=== PATIENT | male | born 1965 | race Caucasian/White ===

== ENCOUNTER → 2017-04-19 | Outpatient (CLI) | payer OTHER ==
[~2017-04-19] MED LIST: ABL10 PO; ATOR-26 PO; ATV/1 PO; GABA300C19 PO; GLYB1.257 PO; LISI5TAB3 PO; METF1TAB53 PO; TRAZ50TA35 PO; [UNRECOGNIZED DRUG - CODE] PO
[2017-04-19 12:15] LABS: BASO % 0.3 %; BASO ABS # 0.02 K/uL (0-0.2); COMPLETE YES; IG% 0.5 %; LYMPH % 24.1 %; LYMPH ABS # 1.46 K/uL (1.2-3.4); MEAN CELL VOLUME 91.3 fL (80-100); MEAN CORPUSCULAR HGB CONC 31.8 g/dl (32-36); MEAN PLATELET VOLUME 10.6 fL (7.4-10.4); MONO % 7.6 %; NEUT % 65.5 %; PLATELET COUNT 259 K/uL (130-400); RED BLOOD COUNT 4.82 M/uL (4.7-6.1); WHITE BLOOD COUNT 6.07 K/uL (4.8-10.8)
[2017-04-19 12:24] LABS: ALT/SGPT 35 U/L (12-78); BLOOD UREA NITROGEN 12 mg/dl (7-18); BUN/CREATININE RATIO 12.9 (10-20); CALCIUM 9.3 mg/dl (8.5-10.1); CARBON DIOXIDE 33 mmol/L (21-32); CHLORIDE 97 mmol/L (98-107); CREATININE 0.93 mg/dl (0.60-1.40); GLUCOSE 217 mg/dl (70-99); MAGNESIUM 2.1 mg/dl (1.8-2.4); POTASSIUM 4.1 mmol/L (3.5-5.1); SODIUM 136 mmol/L (136-145); URIC ACID 4.1 mg/dl (2.6-7.2)
[2017-04-19 12:27] LABS: ALB/GLOB RATIO 0.9 (0.9-2); ALKALINE PHOSPHATASE 83 U/L (45-117); AST/SGOT 19 U/L (15-37)
[2017-04-19 12:40] LABS: CREATININE, URINE 94.4 mg/dl; URINE PROTIEN/CREAT RATIO 0.1 (0-0.2); URINE TOTAL PROTEIN 8.3 mg/dl (0-11.9)
[2017-04-19 12:41] LABS: URINE APPEARANCE CLEAR (CLEAR); URINE BILIRUBIN NEG (NEG); URINE COLOR YELLOW; URINE EPITHELIAL CELL AUTO >30 /lpf (0-5); URINE NITRITE NEG (NEG); URINE PH 6.5 (4.5-7.5); URINE SPECIFIC GRAVITY 1.018 (1.000-1.030); UROBILINOGEN NEG (NEG)
[2017-04-19 12:45] LABS: MANUAL MICROSCOPIC REQUIRED? NO; REVIEW REQ? YES
== END | disposition home or self-care (01) ==
LOC: C.LABBFT 09:26
PROVIDERS: ATTEND Internal Medicine Nephrology
DX: E11.9 Type 2 diabetes mellitus without complications (principal); N20.0 Calculus of kidney; E66.01 Morbid (severe) obesity due to excess calories

== ENCOUNTER → 2017-06-05 | Outpatient (CLI) | payer OTHER ==
[~2017-06-05] MED LIST changes: +GABA-1218 PO; -GABA300C19 PO
[2017-06-05 17:55] LABS: BLOOD UREA NITROGEN 14 mg/dl (7-18); BUN/CREATININE RATIO 14.4 (10-20); CALCIUM 9.3 mg/dl (8.5-10.1); CARBON DIOXIDE 33 mmol/L (21-32); CHLORIDE 97 mmol/L (98-107); CREATININE 0.99 mg/dl (0.60-1.40); GLUCOSE 185 mg/dl (70-99); PHOSPHORUS 2.6 mg/dl (2.5-4.9); POTASSIUM 3.9 mmol/L (3.5-5.1); SODIUM 134 mmol/L (136-145)
== END | disposition home or self-care (01) ==
LOC: C.LABBFT 15:41
PROVIDERS: ATTEND Internal Medicine Nephrology
DX: I10 Essential (primary) hypertension (principal); N20.0 Calculus of kidney

== ENCOUNTER 2024-11-14 21:56 | Inpatient (IN) ==
[2024-11-14 22:57] LABS: Basophils # (auto) 0.02 K/uL (0.00-0.20); Basophils % (auto) 0.2 %; Eosinophils # (auto) 0.03 K/uL (0.00-0.50); Eosinophils % (auto) 0.4 %; Hematocrit (blood only) 37.7 % (42.0-52.0); Immature Granulocytes # (auto) 0.03 K/uL (0.01-0.20); Immature Granulocytes % (auto) 0.4 %; Lymphocytes # (auto) 0.55 K/uL (1.20-3.40); Lymphocytes % (auto) 6.5 %; Mean Corpuscular Hemoglobin 29.5 pg (25.0-34.0); Mean Corpuscular Hgb Conc 34.5 g/dL (32.0-36.0); Mean Corpuscular Volume 85.5 fL (80.0-100.0); Mean Platelet Volume 9.7 fL (9.4-12.4); Monocytes # (auto) 0.47 K/uL (0.11-0.59); Monocytes % (auto) 5.5 %; Neutrophils # (auto) 7.37 K/uL (1.40-6.50); Platelet Count 313 K/uL (130-400); RDW Coefficient of Variation 13.4 % (11.5-14.5); RDW Standard Deviation 42.1 fL (36.4-46.3); Red Blood Count 4.41 M/uL (4.70-6.10); White Blood Count 8.47 K/ul (4.8-10.8)
[2024-11-14 23:23] LABS: Albumin Level 3.8 gm/dl (3.4-5.0); Bilirubin Direct 0.1 mg/dl (0-0.2); Bilirubin,Total 0.5 mg/dl (0.2-1.0); Calcium 9.3 mg/dl (8.6-10.3); Creatinine Clr Calc Pharmacy 71.3 ml/min; Magnesium 2.1 mg/dl (1.7-2.4); Total Protein 8.3 gm/dl (6.0-8.3); Troponin I High Sensitivity 6.8 pg/ml (0-20)
[2024-11-14 23:42] LABS: Adenovirus PCR Not Detected (NotDetected); Bordetella parapertussis PCR Not Detected (NotDetected); Bordetella pertussis PCR Not Detected (NotDetected); Chlamydia pneumoniae PCR Not Detected (NotDetected); Coronavirus 229E PCR Not Detected (NotDetected); Coronavirus CoV-2 (COVID19)PCR Not Detected (NotDetected); Coronavirus HKU1 PCR Not Detected (NotDetected); Coronavirus NL63 PCR Not Detected (NotDetected); Coronavirus OC43PCR Not Detected (NotDetected); Human Metapneumovirus PCR Not Detected (NotDetected); Influenza A PCR Not Detected (NotDetected); Influenza B PCR Not Detected (NotDetected); Mycoplasma pneumoniae PCR Not Detected (NotDetected); Parainfluenza Virus 1 PCR Not Detected (NotDetected); Parainfluenza Virus 2 PCR Not Detected (NotDetected); Parainfluenza Virus 3 PCR Not Detected (NotDetected); Parainfluenza Virus 4 PCR Not Detected (NotDetected); Respiratory Syncytial VirusPCR Not Detected (NotDetected); Rhinovirus/Enterovirus PCR Not Detected (NotDetected)
[2024-11-14 23:45] LABS: Appearance Urine Cloudy (Clear); Bacteria Urine Automated 4+ (None Seen); Bilirubin Urine Negative (Negative); Blood Urine 1+ (Negative); Cast Urine Automated 0-2 /lpf (0-2); Color Urine Yellow; Epithelial Cell Urine Auto 0-2 /hpf (0-2); Glucose Urine UA 3+ (Negative); Ketones Urine Trace (Negative); Leukocyte Esterase Urine 2+ (Negative); Nitrite Urine Positive (Negative); Protein Urine 2+ (Negative); RBC Urine Automated 0-2 /hpf (0-2); Specific Gravity Urine 1.026 (1.000-1.030); Urobilinogen Urine Negative (Negative); WBC Urine Automated >50 /hpf (0-5)
[2024-11-14 23:57] LABS: HCO3 VBG 26 mmol/L; Oxygen Saturation VBG 70.9 %; PCO2 VBG 42 mmHg (38-50); PO2 VBG 37 mmHg
--- NOTE | 2024-11-15 00:02 | Emergency Department Note ---
History of Present Illness General Chief complaint: Urinary Symptoms Stated complaint: Cough, Fever, Increased Urination Time Seen by Provider: 11/14/24 22:18 History of Present Illness This 59-year-old male presents ER complaining fever, chills generalized illness and left flank pain and urinary symptoms for the past few days steadily getting worse. He does not routinely check his blood sugars. Patient denies chest pain, dyspnea, vomiting, diarrhea. No rash. Home Medications Medication Instructions Recorded Confirmed Type atorvastatin 80 mg tablet 80 mg PO HS 08/21/19 11/15/24 History gabapentin 300 mg capsule 300 mg PO BID 08/21/19 11/15/24 History gabapentin 300 mg capsule 600 mg PO HS 08/21/19 11/15/24 History lorazepam 1 mg tablet 1 mg PO HS 08/21/19 11/15/24 History metformin 1,000 mg tablet 1,000 mg PO BID 08/21/19 11/15/24 History methylphenidate HCl 20 mg 20 mg PO QAM 08/21/19 11/15/24 History tablet,extended release aripiprazole 20 mg tablet 20 mg PO DAILY 11/15/24 11/15/24 History docusate sodium 100 mg capsule 100 mg PO BID PRN Constipation 11/15/24 11/15/24 History (Col-Rite) empagliflozin 25 mg tablet 25 mg PO QAM 11/15/24 11/15/24 History (Jardiance) glipizide 10 mg tablet, extended 10 mg PO QAM 11/15/24 11/15/24 History release 24 hr semaglutide 2 mg/dose (8 mg/3 mL) 2 mg subcut WK 11/15/24 11/15/24 History subcutaneous pen injector (Ozempic) trazodone 150 mg tablet 150 mg PO HS 11/15/24 11/15/24 History Allergies Allergy/AdvReac Type Severity Reaction Status Date / Time Iodinated Contrast Media Allergy Intermediate itching Verified 03/24/22 08:31 Past Med/Surg History Problem List Acute hyperglycemia (Acute) Sepsis (Acute) Ureterolithiasis (Acute) Renal colic on left side (Acute) Acute pyelonephritis (Acute) Kidney stones Impotence (Acute Unknown) Right ankle pain (Acute) Encounter for pre-operative examination Colon polyp Medical History Schizophrenia Essential tremor Diabetic polyneuropathy Morbid obesity with BMI of 45.0-49.9, adult Diabetes mellitus, type 2 NIDDM Hgb A1C on 12/30/21 was 6.8 Bipolar disorder ADHD Hypertension Hyperlipidemia Sleep apnea cpap Surgical History History of cystoscopy 02/09/22 Bilateral retrograde pyelogram, attempted ureteroscopy, insertion of Bilateral Stent Catheter(Not Applicable) Hx of tooth extraction History of lymph node excision off left side of neck, benign tissue History of lumbar fusion History of colonoscopy with polypectomy History of wisdom tooth extraction Family History Mother Family history of diabetes mellitus Sister Family history of diabetes mellitus Sister Family history of diabetes mellitus Sister Family history of diabetes mellitus Other No family history of adverse response to anesthesia Social History Smoking Status: Never smoker Second Hand Exposure: Yes (IN THE PAST); Do You Dip or Chew Tobacco: No; Hx Alcohol Use: Yes Alcohol type: hard liquor Preferred Language: Kyrgyz Communication Ability: Effective Social Work Program Coordinator Required: No Beliefs That Will Affect Care: None Current Living Situation: Alone Feels Safe at Home: Yes Assistive Devices: CPAP, Denture - Upper, Denture - Lower and Glasses Review of Systems A total of 10 systems reviewed and were otherwise negative Physical Exam Vital Signs Vital Signs - 24 hr 11/14/24 22:05 11/14/24 22:11 11/14/24 22:26 Temperature 39.5 C H Temperature Source Oral Pulse Rate 104 H 103 H 100 H Pulse Rate [Finger] Pulse Rhythm Regular Pulse Rhythm [Finger] Pulse Strength [Finger] Respiratory Rate 24 22 Respiratory Effort / Characteristics Non-Labored Spontaneous Respiratory Depth Normal Respiratory Pattern Blood Pressure 125/81 Blood Pressure [Right Arm] Blood Pressure Mean 95 Blood Pressure Mean [Right Arm] Blood Pressure Position [Right Arm] Pulse Oximetry 94 95 Oxygen Delivery Method Room Air Room Air Sepsis Recent Fever Within 48 Hours Yes Sepsis New/Unexplained Change in Mental Status No Sepsis Action Taken by Nursing Physician Notified 11/14/24 22:30 11/14/24 23:00 11/14/24 23:22 Temperature Temperature Source Pulse Rate 99 H 96 H Pulse Rate [Finger] 100 H Pulse Rhythm Pulse Rhythm [Finger] Regular Pulse Strength [Finger] Normal Respiratory Rate 20 22 22 Respiratory Effort / Characteristics Non-Labored Spontaneous Respiratory Depth Normal Respiratory Pattern Regular Blood Pressure 150/85 H 101/68 Blood Pressure [Right Arm] 143/72 H Blood Pressure Mean 105 88 Blood Pressure Mean [Right Arm] 95 Blood Pressure Position [Right Arm] Lying Pulse Oximetry 95 95 95 Oxygen Delivery Method Room Air Sepsis Recent Fever Within 48 Hours Sepsis New/Unexplained Change in Mental Status Sepsis Action Taken by Nursing 11/14/24 23:30 11/14/24 23:45 11/15/24 00:15 Temperature Temperature Source Pulse Rate 96 H 96 H 91 H Pulse Rate [Finger] Pulse Rhythm Pulse Rhythm [Finger] Pulse Strength [Finger] Respiratory Rate 25 H 25 H 24 Respiratory Effort / Characteristics Respiratory Depth Respiratory Pattern Blood Pressure 97/69 L 98/66 L 116/65 Blood Pressure [Right Arm] Blood Pressure Mean 75 78 82 Blood Pressure Mean [Right Arm] Blood Pressure Position [Right Arm] Pulse Oximetry 95 95 95 Oxygen Delivery Method Sepsis Recent Fever Within 48 Hours Sepsis New/Unexplained Change in Mental Status Sepsis Action Taken by Nursing 11/15/24 00:19 Temperature 37.8 C H Temperature Source Oral Pulse Rate Pulse Rate [Finger] Pulse Rhythm Pulse Rhythm [Finger] Pulse Strength [Finger] Respiratory Rate Respiratory Effort / Characteristics Respiratory Depth Respiratory Pattern Blood Pressure Blood Pressure [Right Arm] Blood Pressure Mean Blood Pressure Mean [Right Arm] Blood Pressure Position [Right Arm] Pulse Oximetry Oxygen Delivery Method Sepsis Recent Fever Within 48 Hours Sepsis New/Unexplained Change in Mental Status Sepsis Action Taken by Nursing VITALS: Vitals are noted on the nurse's note and reviewed by myself. Vital signs febrile. GENERAL: White male ill-appearing, speaking in full sentences SKIN: The skin was without rashes, erythema, edema, or bruising. There is no tenting of the skin. Capillary reflex less than 2 seconds. HEAD: Normocephalic atraumatic. EARS: External auditory canals clear EYES: Pupils equal round and reactive to light and accommodation. Conjunctivae without injection, sclerae without icterus. Extraocular movements intact. NOSE: Patent, no discharge. MOUTH: Mucous membranes moist. Pharynx without erythema or exudate. Uvula midline. Airway patent. Tongue does not deviate. NECK: Supple without nuchal rigidity. No lymphadenopathy. No thyromegaly. Cervical spine is nontender. No JVD. HEART: Regular rate and rhythm LUNGS: Clear to auscultation bilaterally without wheezes, rales or rhonchi. No retractions or accessory muscle use. ABDOMEN: Positive bowel sounds x 4. Normal tympanic percussion. Soft, nontender, without masses or organomegaly. Echeverria sign negative. No guarding or rebound tenderness. N left o CVA tenderness MUSCULOSKELETAL: No muscle atrophy, erythema, noted. NEURO: Patient was alert and oriented to person place and time. Normal sensation to light and sharp touch. No focal neurological deficits. Course Administered Medications Discontinued Medications Acetaminophen (Acetaminophen 500 Mg Tab) 1,000 mg PO NOW STA Stop: 11/14/24 22:28 Last Admin: 11/14/24 22:44 Dose: 1,000 mg Documented By: THOMAS Sodium Chloride (Nss) 1,000 mls @ 999 mls/hr IV .Q1H1M ESTEFANI Stop: 11/14/24 23:30 Last Admin: 11/14/24 23:38 Dose: 999 mls/hr Documented By: THOMAS Piperacillin Sod/Tazobactam Sod (Zosyn) 4.5 gm in 100 mls @ 200 mls/hr IV NOW ONE; Protocol Stop: 11/14/24 22:55 Last Admin: 11/15/24 00:09 Dose: 200 mls/hr Documented By: THOMAS Sodium Chloride (Nss) 1,000 mls @ 999 mls/hr IV .Q1H1M ESTEFANI Stop: 11/15/24 00:30 Last Admin: 11/15/24 00:33 Dose: 999 mls/hr Documented By: Infusion: 11/15/24 00:33 Dose: Infused Documented By: Admin: 11/15/24 00:15 Dose: 999 mls/hr Documented By: THOMAS Ibuprofen (Ibuprofen 800 Mg Tab) 800 mg PO NOW STA Stop: 11/14/24 22:28 Last Admin: 11/14/24 22:44 Dose: 800 mg Documented By: THOMAS Critical Care Time Critical Care Time: Yes Total Critical Care Time: 35 I have personally spent 35 minutes of critical care time in the direct management of this patient. This includes bedside care, interpretation of diagnostic studies, and testing, discussion with consultants, patient, and family members, and other required patient management activities. This 35 minutes is in excess of all separately billable procedures. Medical Decision Making Medical Records Attestation: I reviewed the patient's medical records. Home Medications Current Medication List: was personally reviewed by me Laboratory Data Attestation: I reviewed the patient's lab results. 11/14/24 22:30 11/14/24 22:30 Lab Results 11/14/24 11/14/24 11/14/24 Range/Units 22:06 22:10 22:30 WBC 8.47 (4.8-10.8) K/ul RBC 4.41 L (4.70-6.10) M/uL Hgb 13.0 L (14.0-18.0) g/dl Hct 37.7 L (42.0-52.0) % MCV 85.5 (80.0-100.0) fL MCH 29.5 (25.0-34.0) pg MCHC 34.5 (32.0-36.0) g/dL RDW Std Deviation 42.1 (36.4-46.3) fL RDW Coeff of Angelia 13.4 (11.5-14.5) % Plt Count 313 (130-400) K/uL MPV 9.7 (9.4-12.4) fL Immature Gran % (Auto) 0.4 % Neut % (Auto) 87.0 % Lymph % (Auto) 6.5 % [place] % (Auto) 5.5 % Eos % (Auto) 0.4 % Baso % (Auto) 0.2 % Neut # (Auto) 7.37 H (1.40-6.50) K/uL Lymph # (Auto) 0.55 L (1.20-3.40) K/uL [place] # (Auto) 0.47 (0.11-0.59) K/uL Eos # (Auto) 0.03 (0.00-0.50) K/uL Baso # (Auto) 0.02 (0.00-0.20) K/uL Immature Gran # (Auto) 0.03 (0.01-0.20) K/uL VBG pH (7.36-7.41) VBG pCO2 (38-50) mmHg VBG pO2 mmHg VBG HCO3 mmol/L VBG O2 Saturation % VBG Base Excess mEq/L Sodium 133 L (136-145) mmol/L Potassium 4.0 (3.5-5.1) mmol/L Chloride 97 L (98-107) mmol/L Carbon Dioxide 26 (21-32) mmol/L Anion Gap 10 (3-11) BUN 15 (6-23) mg/dl Creatinine 1.88 H (0.6-1.4) mg/dl Est Cr Clr Drug Dosing 71.3 ml/min eGFR 41.16 BUN/Creatinine Ratio 8.0 L (10-20) Glucose 359 H* (70-99(Fasting)) mg/dl POC Glucose 339 H* (70-99) mg/dl Lactate 1.8 (0.4-2.0) mmol/L Calcium 9.3 (8.6-10.3) mg/dl Magnesium 2.1 (1.7-2.4) mg/dl Total Bilirubin 0.5 (0.2-1.0) mg/dl Direct Bilirubin 0.1 (0-0.2) mg/dl AST 13 (13-39) U/L ALT 17 (7-52) U/L Alkaline Phosphatase 67 (34-104) U/L Troponin I High Sens 6.8 (0-20) pg/ml Total Protein 8.3 (6.0-8.3) gm/dl Albumin 3.8 (3.4-5.0) gm/dl Procalcitonin 3.46 H (0-0.5) ng/ml Urine Color Urine Appearance (Clear) Urine pH (4.5-7.5) Ur Specific [place] (1.000-1.030) Urine Protein (Negative) Urine Glucose (UA) (Negative) Urine Ketones (Negative) Urine Blood (Negative) Urine Nitrite (Negative) Urine Bilirubin (Negative) Urine Urobilinogen (Negative) Ur Leukocyte Esterase (Negative) Urine WBC (Auto) (0-5) /hpf Urine RBC (Auto) (0-2) /hpf U Hyaline Cast (Auto) (0-2) /lpf U Epithel Cells (Auto) (0-2) /hpf Urine Bacteria (Auto) (None Seen) Urine Comment Adenovirus (PCR) Not Detected (NotDetected) B. pertussis DNA (PCR) Not Detected (NotDetected) B.parapertussis DNA PCR Not Detected (NotDetected) C. pneumoniae DNA (PCR) Not Detected (NotDetected) Coronavirus OC43 (PCR) Not Detected (NotDetected) Coronavirus HKU1 (PCR) Not Detected (NotDetected) Coronavirus 229E (PCR) Not Detected (NotDetected) SARS-CoV-2 (PCR) Not Detected (NotDetected) Coronavirus NL63 (PCR) Not Detected (NotDetected) Human Metapneumovir PCR Not Detected (NotDetected) Influenza Type A (PCR) Not Detected (NotDetected) Influenza Type B (PCR) Not Detected (NotDetected) M. pneumoniae (PCR) Not Detected (NotDetected) Parainfluenza 1 (PCR) Not Detected (NotDetected) Parainfluenza 2 (PCR) Not Detected (NotDetected) Parainfluenza 3 (PCR) Not Detected (NotDetected) Parainfluenza 4 (PCR) Not Detected (NotDetected) RSV (PCR) Not Detected (NotDetected) Entero/Rhino (PCR) Not Detected (NotDetected) 11/14/24 11/14/24 Range/Units 23:30 23:46 WBC (4.8-10.8) K/ul RBC (4.70-6.10) M/uL Hgb (14.0-18.0) g/dl Hct (42.0-52.0) % MCV (80.0-100.0) fL MCH (25.0-34.0) pg MCHC (32.0-36.0) g/dL RDW Std Deviation (36.4-46.3) fL RDW Coeff of Angelia (11.5-14.5) % Plt Count (130-400) K/uL MPV (9.4-12.4) fL Immature Gran % (Auto) % Neut % (Auto) % Lymph % (Auto) % [place] % (Auto) % Eos % (Auto) % Baso % (Auto) % Neut # (Auto) (1.40-6.50) K/uL Lymph # (Auto) (1.20-3.40) K/uL [place] # (Auto) (0.11-0.59) K/uL Eos # (Auto) (0.00-0.50) K/uL Baso # (Auto) (0.00-0.20) K/uL Immature Gran # (Auto) (0.01-0.20) K/uL VBG pH 7.40 (7.36-7.41) VBG pCO2 42 (38-50) mmHg VBG pO2 37 mmHg VBG HCO3 26 mmol/L VBG O2 Saturation 70.9 % VBG Base Excess 1.0 mEq/L Sodium (136-145) mmol/L Potassium (3.5-5.1) mmol/L Chloride (98-107) mmol/L Carbon Dioxide (21-32) mmol/L Anion Gap (3-11) BUN (6-23) mg/dl Creatinine (0.6-1.4) mg/dl Est Cr Clr Drug Dosing ml/min eGFR BUN/Creatinine Ratio (10-20) Glucose (70-99(Fasting)) mg/dl POC Glucose (70-99) mg/dl Lactate (0.4-2.0) mmol/L Calcium (8.6-10.3) mg/dl Magnesium (1.7-2.4) mg/dl Total Bilirubin (0.2-1.0) mg/dl Direct Bilirubin (0-0.2) mg/dl AST (13-39) U/L ALT (7-52) U/L Alkaline Phosphatase (34-104) U/L Troponin I High Sens (0-20) pg/ml Total Protein (6.0-8.3) gm/dl Albumin (3.4-5.0) gm/dl Procalcitonin (0-0.5) ng/ml Urine Color Yellow Urine Appearance Cloudy A (Clear) Urine pH 6.0 (4.5-7.5) Ur Specific [place] 1.026 (1.000-1.030) Urine Protein 2+ H (Negative) Urine Glucose (UA) 3+ H (Negative) Urine Ketones Trace H (Negative) Urine Blood 1+ H (Negative) Urine Nitrite Positive A (Negative) Urine Bilirubin Negative (Negative) Urine Urobilinogen Negative (Negative) Ur Leukocyte Esterase 2+ H (Negative) Urine WBC (Auto) >50 H (0-5) /hpf Urine RBC (Auto) 0-2 (0-2) /hpf U Hyaline Cast (Auto) 0-2 (0-2) /lpf U Epithel Cells (Auto) 0-2 (0-2) /hpf Urine Bacteria (Auto) 4+ H (None Seen) Urine Comment Adenovirus (PCR) (NotDetected) B. pertussis DNA (PCR) (NotDetected) B.parapertussis DNA PCR (NotDetected) C. pneumoniae DNA (PCR) (NotDetected) Coronavirus OC43 (PCR) (NotDetected) Coronavirus HKU1 (PCR) (NotDetected) Coronavirus 229E (PCR) (NotDetected) SARS-CoV-2 (PCR) (NotDetected) Coronavirus NL63 (PCR) (NotDetected) Human Metapneumovir PCR (NotDetected) Influenza Type A (PCR) (NotDetected) Influenza Type B (PCR) (NotDetected) M. pneumoniae (PCR) (NotDetected) Parainfluenza 1 (PCR) (NotDetected) Parainfluenza 2 (PCR) (NotDetected) Parainfluenza 3 (PCR) (NotDetected) Parainfluenza 4 (PCR) (NotDetected) RSV (PCR) (NotDetected) Entero/Rhino (PCR) (NotDetected) Imaging Data Attestation: I personally reviewed and interpreted this imaging study as follows: Radiologist's Impression: Chest X-Ray 11/14/24 22:25 Exam(s): XR CXR 1 VIEW EXAM: XR Chest, 1 View CLINICAL HISTORY: Reason for exam: Sepsis. TECHNIQUE: Frontal view of the chest. COMPARISON: January 28, 2022 FINDINGS: Lungs: Small amount of left lung base subsegmental atelectasis, exaggerated by body habitus. No focal consolidation is seen. Pleural space: Unremarkable. No pneumothorax. Heart: Mild cardiomegaly, similar to previous. Mediastinum: Unremarkable. Normal mediastinal contour. Bones/joints: Unremarkable. No acute fracture. IMPRESSION: 1. Mild cardiomegaly, similar to previous. 2. Small amount of left lung base subsegmental atelectasis, exaggerated by body habitus. No focal consolidation is seen. Electronically signed by: Manuel Solis MD 11/15/24 00:27 AM Abdomen/Pelvis CT 11/14/24 22:26 Exam(s): CT ABDOMEN + PELVIS Without Contrast EXAM: CT Abdomen and Pelvis Without Intravenous Contrast CLINICAL HISTORY: Reason for exam: sepsis, left flank pain, hx stones. TECHNIQUE: Axial computed tomography images of the abdomen and pelvis without intravenous contrast. CTDI is 28.14 mGy and DLP is 1485.75 mGy-cm. Automated exposure control was utilized for the study. A dose lowering technique was utilized adhering to the principles of ALARA. COMPARISON: No relevant prior studies available. FINDINGS: Lung bases: Unremarkable. No mass. No consolidation. ABDOMEN: Liver: Fatty infiltration of the liver and hepatomegaly with the liver measuring 26 cm craniocaudad. No focal liver mass lesion is seen. Gallbladder and bile ducts: Unremarkable. No calcified stones. No ductal dilation. Pancreas: Unremarkable. No ductal dilation. Spleen: Unremarkable. No splenomegaly. Adrenals: Unremarkable. No mass. Kidneys and ureters: Moderate left-sided hydronephrosis and hydroureter down to a 8 mm calculus in the distal left ureter located 2 cm from the ureterovesicular junction. Mild dilation of the mid right ureter without ureterolithiasis or hydronephrosis on the right. Stomach and bowel: Unremarkable. No obstruction. No mucosal thickening. PELVIS: Appendix: No findings to suggest acute appendicitis. Bladder: Unremarkable. No stones. Reproductive: Unremarkable as visualized. ABDOMEN and PELVIS: Intraperitoneal space: Unremarkable. No free air. No significant fluid collection. Bones/joints: Previous instrumentation and fusion in the lower lumbar spine at L4-5. No acute fracture or subluxation is seen. Soft tissues: Unremarkable. Vasculature: Unremarkable. No abdominal aortic aneurysm. Lymph nodes: Unremarkable. No enlarged lymph nodes. IMPRESSION: Moderate left-sided hydronephrosis and hydroureter down to a 8 mm calculus in the distal left ureter located 2 cm from the ureterovesicular junction. Electronically signed by: Manuel Solis MD 11/15/24 00:19 AM MDM Narrative Prior records/ancillary studies reviewed. Triage Nursing notes reviewed. Additional history obtained from nursing. The patient's history was concerning for fever and urinary symptoms. Differential diagnosis: Etiologies such as sepsis, septic stone, UTI, pneumonia, metabolic, electrolyte abnormalities, cardiac sources, intracerebral event, toxicologic, neurologic, as well as others were entertained. Physical examination: As above. Pertinent findings were urinary symptoms and febrile. Vital signs reviewed and revealed febrile. ER treatment provided: IV fluid resuscitation with Normal saline solution, 2500 mL bolus. Septic protocol fluids were written for. Blood and urine cultures Motrin and Tylenol was given for the fever Antibiotics: Zosyn and vancomycin were ordered Prior cultures were reviewed An order was placed for continuous cardiac monitoring. The monitor shows a rate of 60-100 with a sinus rhythm per my interpretation. I put an ultrasound-guided line in the patient's right AC. 18-gauge was placed by myself. On reassessment the patient vital signs improved. Diagnostics interpretation by me: ECG: Ordered for weakness EKG: Normal sinus, normal intervals, no acute ST-T wave changes, rate 97. Impression normal sinus rhythm independently interpreted by myself The labs Independently Interpreted by myself revealed no worrisome leukocytosis on CBC. Chemistry panel revealed hyperglycemia without DKA. LFTs revealed. Cardiac enzymes were negative Serum Lactate measurement was 1.8. Procalcitonin was 3.46. Blood and urine cultures are pending. Urine concerning for infection sent for culture. Prior cultures were reviewed [facility] [address] [facility], [place] [address] / Director: Fabiana Reyes M.D. Clinical Laboratory Report Name: [place] Acct: [id number] Status: [facility] [place] 1965 [facility] [place]: [place]22 Age: 59 Sex: M Dis Date: Loc: Emergency Department Spec: [id number] Collected: 01/27/22 Received: 01/27/22-[address]: MARII,ED Copy To: Miguel Bergman MD Source: Urine,Clean Catch OV Order: Ordered: Urine Culture Procedure Result Verified Site Urine Culture Final 01/29/22-1108 Organism 1 Escherichia coli [place] Count >100,000 CFU/ml Sens Sensitivities to Follow E coli RX M.I.C. --- --------- Amox/Clav S <=8/4 Ampicillin S <=8 Amp/Sul S <=8/4 Cefazolin S <=2 Cefepime S <=2 Ceftriaxone S <=1 Ciprofloxacin S <=0.25 Ertapenem S <=0.5 Gentamicin S <=4 Levofloxacin S <=0.5 Meropenem S <=1 Nitrofurantoin S <=32 Tobramycin S <=4 Trimeth/Sulfa S <=2/38 Pip/Tazo S <=16 S = SENSITIVE I = INTERMEDIATE R = RESISTANT Imaging studies: Imaging was reviewed and read by radiology Consultation: A consultation was placed with the hospitalist. The case was discussed and diagnostics were reviewed. The patient was evaluated in the ER for further treatment. Consultation was placed with urology provider and the case was discussed. Patient was evaluated in the ER for further evaluation and treatment. They will take the patient to the OR. Exam and history seem consistent with pyelonephritis with stone concerns for septic stone. Patient was started on broad-spectrum antibiotics upon initial evaluation. He was given IV fluids per septic protocol. Prior culture was reviewed. Urology and medicine were consulted. Patient will be admitted to the medical service. Patient is agreeable. Patient skin was reassessed and is stable. Vital signs were reassessed and improved. Blood cultures pending. Urine culture pending. The chart was completed utilizing [employer] Speech voice recognition software. Grammatical errors, random word insertions, pronoun errors, and incomplete sentences are an occassional consequence of this system due to software limitations, ambient noise, and hardware issues. Any formal questions or concerns about the content, text, or information contained within the body of this dictation should be directly addressed to the physician assistant store manager for clarification. Impression & Plan Acute pyelonephritis, Renal colic on left side, Ureterolithiasis, Sepsis, Acute hyperglycemia Discharge Plan Visit Data Chief Complaint: Urinary Symptoms Stated Complaint: Cough, Fever, Increased Urination ED Provider: Kimber Sanchez ED Midlevel Provider: Gardenia Bee Discharge Problem: Acute pyelonephritis, Renal colic on left side, Ureterolithiasis, Sepsis, Acute hyperglycemia Patient Disposition: Admitted As Inpatient Condition: Fair Forms Stand Alone Forms: My [facility] Prescriptions Prescriptions: No Action atorvastatin 80 mg Tablet 80 mg PO HS glipizide 10 mg Tablet 10 mg PO QAM metformin 1,000 mg Tablet 1,000 mg PO BID methylphenidate HCl 20 mg Tablet Extended Release 20 mg PO QAM gabapentin 300 mg Capsule 300 mg PO BID gabapentin 300 mg Capsule 600 mg PO HS lorazepam 1 mg Tablet 1 mg PO HS trazodone 150 mg tablet 150 mg PO HS Jardiance 25 mg tablet 25 mg PO QAM aripiprazole 20 mg tablet 20 mg PO DAILY docusate sodium [Col-Rite] 100 mg capsule 100 mg PO BID PRN (Reason: Constipation) Referrals Referrals: Mario Alberto Archuleta MD [Primary Care Provider] -
--- NOTE | 2024-11-15 00:20 | CT Scan Report ---
Exam(s): CT ABDOMEN + PELVIS Without Contrast EXAM: CT Abdomen and Pelvis Without Intravenous Contrast CLINICAL HISTORY: Reason for exam: sepsis, left flank pain, hx stones. TECHNIQUE: Axial computed tomography images of the abdomen and pelvis without intravenous contrast. CTDI is 28.14 mGy and DLP is 1485.75 mGy-cm. Automated exposure control was utilized for the study. A dose lowering technique was utilized adhering to the principles of ALARA. COMPARISON: No relevant prior studies available. FINDINGS: Lung bases: Unremarkable. No mass. No consolidation. ABDOMEN: Liver: Fatty infiltration of the liver and hepatomegaly with the liver measuring 26 cm craniocaudad. No focal liver mass lesion is seen. Gallbladder and bile ducts: Unremarkable. No calcified stones. No ductal dilation. Pancreas: Unremarkable. No ductal dilation. Spleen: Unremarkable. No splenomegaly. Adrenals: Unremarkable. No mass. Kidneys and ureters: Moderate left-sided hydronephrosis and hydroureter down to a 8 mm calculus in the distal left ureter located 2 cm from the ureterovesicular junction. Mild dilation of the mid right ureter without ureterolithiasis or hydronephrosis on the right. Stomach and bowel: Unremarkable. No obstruction. No mucosal thickening. PELVIS: Appendix: No findings to suggest acute appendicitis. Bladder: Unremarkable. No stones. Reproductive: Unremarkable as visualized. ABDOMEN and PELVIS: Intraperitoneal space: Unremarkable. No free air. No significant fluid collection. Bones/joints: Previous instrumentation and fusion in the lower lumbar spine at L4-5. No acute fracture or subluxation is seen. Soft tissues: Unremarkable. Vasculature: Unremarkable. No abdominal aortic aneurysm. Lymph nodes: Unremarkable. No enlarged lymph nodes. IMPRESSION: Moderate left-sided hydronephrosis and hydroureter down to a 8 mm calculus in the distal left ureter located 2 cm from the ureterovesicular junction. Electronically signed by: Manuel Solis MD 11/15/24 00:19 AM
--- NOTE | 2024-11-15 00:21 | Urology Consultation ---
Date of Consultation November 15, 2024 Assessment & Plan (1) Sepsis: (2) Ureterolithiasis: I discussed with the treating clinician emergency and the patient will be admitted to the medical service. From urology perspective we will proceed as follows: The patient has received antibiotics in the form of Zosyn. Vancomycin has also been ordered as an antibiotic should continue. Appropriate cultures have been sent and antibiotics to be tailored based on these results Keep the patient n.p.o. for the present time Follow serial labs Provide IV fluid for hydration As the patient was noted to be febrile with a urinalysis that appears infected along with his slight tachycardia we will plan on taking the patient to the operating room tonight for cystoscopy with left ureteral stent placement by Dr. Bear Additional recommendations be forthcoming based on his clinical course as it unfolds (3) Acute hyperglycemia: (4) Kidney stones: (5) Morbid obesity with BMI of 45.0-49.9, adult: (6) Diabetes mellitus, type 2: (7) Schizophrenia: (8) Diabetic polyneuropathy: Plan Attending note: Patient with obstructing left ureteral stone at the distal ureter causing severe hydronephrosis. Significant perinephric stranding. Patient presented with significant fevers with Tmax at 39.5. Patient presented also tachycardic. Now has developed hypotension. Patient has been dealing with increasing pain and bother on the left with episodes of significant chills and ill feelings. Has been going on for the last 4 to 5 days worse over the last 2 to 3 days. Patient independently assessed, examined, interviewed, and evaluated. Presented with signs of SIRS with obstructing stone. Has developed more significant issues with developing hypotension, tachycardia. And significant febrile illness. Agree with note as above. Patient's vitals and labs were all reviewed. Physical exam performed by myself. Pertinent values in the HPI and plan section. Creatinine 1.88. Elevated from baseline around 1. White count at 8.47. Hemoglobin 13.0. UA was grossly positive with leuk esterase and blood. Nitrite negative however. Patient previously has history of stones. This was extensively reviewed. Have been following with Dr. Stockton. Previously had mixed calcium stones. Was last seen in 2022. Imaging was reviewed and interpreted by myself. Patient with significant left-sided hydronephrosis with distal stone approximately 2 cm from the UVJ with significant hydroureter and hydronephrosis. Significant perinephric stranding seen. Agree with read otherwise. Vitals were reviewed. Patient blood pressure now 109/56. Pulse has slightly improved to 90. Had been over 100. Current temp 37.8. Respiration is mildly tachypneic at 22. Oxygen saturation was 95% on room air. Discussed findings extensively with patient and family. Reviewed with ASHLY as well as consulting physicians/team. Patient's complicated medical and surgical history was reviewed and summarized above. Patient's surgical, medical, social, and family history were all reviewed with pertinent values as above. Discussed patient's current diagnosis as well as concerns and issues. Reviewed different options moving forward. Discussed potential risks and benefits as well as possible options and concerns. Reviewed potential surgical options and interventions. Discussed potential issues and concerns related to intervention. Risk and benefits were discussed extensively with patient and any available family. Discussed potential risks related to anesthesia. Discussed risks of bleeding infection and injury. Discussed options for conservative measure and maximum expulsion medical therapy and symptom controlled. Discussed ESWL. Discussed Ureteroscopy with extraction and/or laser lithotripsy. Risks and benefits were discussed. Stone free rates were also discussed as well as possibility of multiple procedures. Ureteral stents were discussed as well as post-operative issues and pain management. All questions were answered. Discussed extensively suspicion of developing sepsis. Discussed possible development of severe sepsis or septic shock. Concern due to development of hypotension. Had been tachycardic. Had undergone resuscitation with broad-spectrum antibiotics and IV hydration. Patient is being admitted for critical management and close monitoring. Reviewed extensively need for intervention due to likely ascending infection and developing pyelonephritis with sepsis. Patient also has significant comorbidities including morbid obesity diabetes and psychiatric issues. Did discuss possible increase in risk with both sepsis and surgical intervention secondary to especially diabetes and morbid obesity. Risks and benefits discussed at length for procedure. These include bleeding, infection, injury to surrounding tissues or organs, and risks associated with anesthesia. Patient states understanding and agrees to proceed. Will sign consent and proceed. Plan for cystoscopy with left stent placement possible ureteroscopy. Plan for urgent/emergent procedure. Patient last substantial oral intake status was around 2 PM today. Otherwise has just had water. History of Present Illness Reason for Consultation: Nephrolithiasis History of Present Illness This is a 59-year-old male with past medical history of kidney stones who has been having 4 to 5 days of left-sided flank pain. Patient has also had some chills and fevers with got worse over the past 12 to 24 hours. Patient denies any nausea or vomiting. He says that he is having urinary frequency without dysuria or hematuria. Patient says that he has had kidney stones in the past which required a ureteral stent but it has been several years. Since arrival to emergency department he has had labs and imaging which independent reviewed. CBC revealed white blood cell count platelet count were normal. Hemoglobin and hematocrit 13.0 and 37.7. Chemistry profile showed sodium was 133 with a normal potassium. His BUN and creatinine were 15 and 1.8 (this level of creatinine is elevated from his baseline values which are usually normal). A lactic acid level was not elevated at 1.8. A urinalysis was performed which was positive for nitrites and had pyuria with greater than 50 white blood cells per high-power field. There is 2+ leukocyte Estrace on the specimen as well as 4+ bacteria. Patient did have a bio fire study performed which was negative for all viruses tested. A CT scan of the abdomen pelvis showed the patient had left-sided hydronephrosis secondary to an 8 mm kidney stone in the distal left ureter. At the time of my interview the patient was resting comfortably in bed and he was in no distress. Allergies Allergy/AdvReac Type Severity Reaction Status Date / Time Iodinated Contrast Media Allergy Intermediate itching Verified 11/15/24 00:44 Home Medications Medication Instructions Recorded Confirmed Type atorvastatin 80 mg tablet 80 mg PO HS 08/21/19 11/15/24 History gabapentin 300 mg capsule 300 mg PO BID 08/21/19 11/15/24 History gabapentin 300 mg capsule 600 mg PO HS 08/21/19 11/15/24 History lorazepam 1 mg tablet 1 mg PO HS 08/21/19 11/15/24 History metformin 1,000 mg tablet 1,000 mg PO BID 08/21/19 11/15/24 History methylphenidate HCl 20 mg 20 mg PO QAM 08/21/19 11/15/24 History tablet,extended release aripiprazole 20 mg tablet 20 mg PO DAILY 11/15/24 11/15/24 History docusate sodium 100 mg capsule 100 mg PO BID PRN Constipation 11/15/24 11/15/24 History (Col-Rite) empagliflozin 25 mg tablet 25 mg PO QAM 11/15/24 11/15/24 History (Jardiance) glipizide 10 mg tablet, extended 10 mg PO QAM 11/15/24 11/15/24 History release 24 hr lisinopril 10 mg tablet 10 mg PO DAILY 11/15/24 11/15/24 History [id number]-[id number] 300 mcg-K 60 1 tab PO DAILY 11/15/24 11/15/24 History mcg-lycop 600 mcg-lutein 300 mcg tablet (Centrum Silver Men) semaglutide 2 mg/dose (8 mg/3 mL) 2 mg subcut WK 11/15/24 11/15/24 History subcutaneous pen injector (Ozempic) trazodone 150 mg tablet 150 mg PO HS 11/15/24 11/15/24 History Patient History Medical History Schizophrenia Essential tremor Diabetic polyneuropathy Morbid obesity with BMI of 45.0-49.9, adult Diabetes mellitus, type 2 NIDDM Hgb A1C on 12/30/21 was 6.8 Bipolar disorder ADHD Hypertension Hyperlipidemia Sleep apnea cpap Surgical History History of cystoscopy 02/09/22 Bilateral retrograde pyelogram, attempted ureteroscopy, insertion of Bilateral Stent Catheter(Not Applicable) Hx of tooth extraction History of lymph node excision off left side of neck, benign tissue History of lumbar fusion History of colonoscopy with polypectomy History of wisdom tooth extraction Family History Mother Family history of diabetes mellitus Sister Family history of diabetes mellitus Sister Family history of diabetes mellitus Sister Family history of diabetes mellitus Other No family history of adverse response to anesthesia Social History Smoking Status: Never smoker Second Hand Exposure: Yes (IN THE PAST); Do You Dip or Chew Tobacco: No; Hx Alcohol Use: Yes Alcohol type: hard liquor Preferred Language: Tongan Communication Ability: Effective Delivery Representative Required: No Beliefs That Will Affect Care: None Current Living Situation: Alone Feels Safe at Home: Yes Assistive Devices: CPAP, Denture - Upper, Denture - Lower and Glasses Review of Systems Review of Systems: All systems reviewed & are unremarkable except as noted in HPI & below Limited due to patient illness/sepsis Physical Exam Physical Exam: General: Acutely ill. Undergoing critical care management for acute severe infection HEENT: Normocephalic Atraumatic. Inspection normal. Cranial Nerves 2-12 Grossly intact. Nares are clear. Neck is supple. Normal inspection of face. Normal inspection of neck. Neurologic: No deficits on inspection. Baseline for motor function and sensory. Psychologic: Anxious, acute illness Respiratory: Mild labored. No use of accessory muscles. No severe dyspnea. Cardiovascular: tachycardia. Mild hypertension Skin: [place] and Dry. No rashes or visible lesions. Febrile Extremities: Moving without issues. No motor deficits on inspection Lymphatics: Mild edema Abdomen: Obese mildly distended. No rebound or guarding. Mild suprapubic/flank tenderness Constitutional: well nourished, + acute distress and + obese Eyes: Wears glasses ENMT: Ears: no hearing impairment and no external ear abnormality Mouth: no oropharynx abnormality Neck: trachea midline Respiratory: normal respiratory effort; no respiratory distress and no labored breathing Cardiovascular: Rate/Rhythm: regular rate and regular rhythm Gastrointestinal (Abdomen): Abdomen is soft and nontender and rotund. It is nonrigid and has no signs of peritonitis. There is no pain with palpation Musculoskeletal: No calf tenderness Skin: no rashes Neurologic: moves all extremities Psychiatric: A+Ox3, euthymic affect Genitourinary: No CVA tenderness with percussion bilaterally Results & Data Vital Signs (Past 12 Hours) Vital Signs Temp Pulse Pulse Resp BP BP Pulse Ox 11/15/24 00:15 91 H 24 116/65 95 11/14/24 23:45 96 H 25 H 98/66 L 95 11/14/24 23:30 96 H 25 H 97/69 L 95 11/14/24 23:22 96 H 22 101/68 95 11/14/24 23:00 99 H 22 150/85 H 95 11/14/24 22:30 100 H 20 143/72 H 95 11/14/24 22:26 100 H 22 95 11/14/24 22:11 103 H 11/14/24 22:05 39.5 C H 104 H 24 125/81 94 O2 Del Method 11/15/24 00:15 11/14/24 23:45 11/14/24 23:30 11/14/24 23:22 11/14/24 23:00 11/14/24 22:30 Room Air 11/14/24 22:26 Room Air 11/14/24 22:11 11/14/24 22:05 Room Air PG Care Time/CCT Total # of Minutes Spent Total Time Spent with Patient: Total time spent is greater than 50% in coordination of care (as documented) at patient's floor/unit and/or counseling patient: Coding Level of Care Code 07267 IN/OBS CONSULT LVL 5,80M Diagnoses Sepsis A41.9 Ureterolithiasis N20.1 Acute hyperglycemia R73.9 Kidney stones N20.0 Morbid obesity with BMI of 45.0-49.9, adult E66.01; Z68.42 Diabetes mellitus, type 2 E11.9 Schizophrenia F20.9 Diabetic polyneuropathy E11.42
--- NOTE | 2024-11-15 00:28 | XRay Report ---
Exam(s): XR CXR 1 VIEW EXAM: XR Chest, 1 View CLINICAL HISTORY: Reason for exam: Sepsis. TECHNIQUE: Frontal view of the chest. COMPARISON: January 28, 2022 FINDINGS: Lungs: Small amount of left lung base subsegmental atelectasis, exaggerated by body habitus. No focal consolidation is seen. Pleural space: Unremarkable. No pneumothorax. Heart: Mild cardiomegaly, similar to previous. Mediastinum: Unremarkable. Normal mediastinal contour. Bones/joints: Unremarkable. No acute fracture. IMPRESSION: 1. Mild cardiomegaly, similar to previous. 2. Small amount of left lung base subsegmental atelectasis, exaggerated by body habitus. No focal consolidation is seen. Electronically signed by: Manuel Solis MD 11/15/24 00:27 AM
--- NOTE | 2024-11-15 01:23 | Anesthesiology Consultation ---
Date of Service November 15, 2024 Assessment & Plan Chart Review Chart Review: Patient NOT seen in Pre Admission Testing emergent procedure Consults Requested none History Surgery Operation Date: 11/15/24 01:30 Proposed Procedures p Ureteral Stent Insertion/Removal - Rogelio Bear DO Height/Weight Height: 6 ft 1 in Weight: 170.9 kg Allergies Allergy/AdvReac Type Severity Reaction Status Date / Time Iodinated Contrast Media Allergy Intermediate itching Verified 11/15/24 00:44 Medications Home Medications Medication Instructions Recorded Confirmed Last Taken atorvastatin 80 mg tablet 80 mg PO HS 08/21/19 11/15/24 03/22/22 21:00 gabapentin 300 mg capsule 300 mg PO BID 08/21/19 11/15/24 03/23/22 21:00 gabapentin 300 mg capsule 600 mg PO 08/21/19 11/15/24 03/23/22 21:00 lorazepam 1 mg tablet 1 mg PO 08/21/19 11/15/24 02/09/22 metformin 1,000 mg tablet 1,000 mg PO BID 08/21/19 11/15/24 03/22/22 21:00 methylphenidate HCl 20 mg 20 mg PO [facility] 08/21/19 11/15/24 03/22/22 09:00 tablet,extended release aripiprazole 20 mg tablet 20 mg PO DAILY 11/15/24 11/15/24 Unknown docusate sodium 100 mg capsule 100 mg PO BID PRN Constipation 11/15/24 11/15/24 Unknown (Col-Rite) empagliflozin 25 mg tablet 25 mg PO [facility] 11/15/24 11/15/24 Unknown (Jardiance) glipizide 10 mg tablet, extended 10 mg PO M 11/15/24 11/15/24 Unknown release 24 hr lisinopril 10 mg tablet 10 mg PO DAILY 11/15/24 11/15/24 Unknown sjcphjcz-sx-nlkmj 300 mcg-K 60 1 tab PO DAILY 11/15/24 11/15/24 Unknown mcg-lycop 600 mcg-lutein 300 mcg tablet (Centrum Silver Men) semaglutide 2 mg/dose (8 mg/3 mL) 2 mg subcut WK 11/15/24 11/15/24 Unknown subcutaneous pen injector (Ozempic) trazodone 150 mg tablet 150 mg PO HS 11/15/24 11/15/24 Unknown Active Medications Generic Name Dose Route Start Last Admin Trade Name Bassam PRN Reason Stop Dose Admin Vancomycin HCl 2,750 mg/ 555 mls @ 200 mls/hr 11/14/24 23:29 11/15/24 00:39 Sodium Chloride IV 11/15/24 02:19 200 mls/hr NOW ONE Administration Past Medical History Medical History Schizophrenia Essential tremor Diabetic polyneuropathy Morbid obesity with BMI of 45.0-49.9, adult Diabetes mellitus, type 2 NIDDM Hgb A1C on 12/30/21 was 6.8 Bipolar disorder ADHD Hypertension Hyperlipidemia Sleep apnea cpap Past Family History Family History Mother Family history of diabetes mellitus Sister Family history of diabetes mellitus Sister Family history of diabetes mellitus Sister Family history of diabetes mellitus Other No family history of adverse response to anesthesia Past Surgical History Surgical History History of cystoscopy 02/09/22 Bilateral retrograde pyelogram, attempted ureteroscopy, insertion of Bilateral Stent Catheter(Not Applicable) Hx of tooth extraction History of lymph node excision off left side of neck, benign tissue History of lumbar fusion History of colonoscopy with polypectomy History of wisdom tooth extraction Social History Smoking Status: Never smoker Do You Dip or Chew Tobacco: No Hx Alcohol Use: Yes Alcohol type: hard liquor alcohol intake frequency: holidays/special occasions only substance use type: does not use Physical Exam Vital Signs Last Vital Signs Temp 100.0 F H 11/15/24 00:19 Pulse 90 11/15/24 00:54 Resp 22 11/15/24 00:54 BP 109/56 L 11/15/24 00:54 Pulse Ox 95 11/15/24 00:54 O2 Del Method Room Air 11/14/24 22:30 Testing Laboratory Results 11/14/24 22:30 11/14/24 22:30 Urine Color Yellow 11/14/24 23:30 Urine Appearance Cloudy (Clear) A 11/14/24 23:30 Urine pH 6.0 (4.5-7.5) 11/14/24 23:30 Ur Specific [place] 1.026 (1.000-1.030) 11/14/24 23:30 Urine Protein 2+ (Negative) H 11/14/24 23:30 Urine Glucose (UA) 3+ (Negative) H 11/14/24 23:30 Urine Ketones Trace (Negative) H 11/14/24 23:30 Urine Nitrite Positive (Negative) A 11/14/24 23:30 Ur Leukocyte Esterase 2+ (Negative) H 11/14/24 23:30 Urine WBC (Auto) >50 /hpf (0-5) H 11/14/24 23:30 Urine RBC (Auto) 0-2 /hpf (0-2) 11/14/24 23:30 U Hyaline Cast (Auto) 0-2 /lpf (0-2) 11/14/24 23:30 U Epithel Cells (Auto) 0-2 /hpf (0-2) 11/14/24 23:30 Urine Bacteria (Auto) 4+ (None Seen) H 11/14/24 23:30 11/14/24 22:06 POC Glucose 339 H*
--- NOTE | 2024-11-15 02:25 | Operative Report ---
[facility] Post Operative Report Pre & Post Diagnosis Obstructing Left Stone, Sepsis Same Operation Date: 11/15/24 01:30 <No data on this case meets the specified criteria> I identified the patient and participated in the time-out.: Yes Procedure Operation Date: 11/15/24 01:30 <No data on this case meets the specified criteria> Cystoscopy with urethral dilation, difficult catheter placement Left urine aspiration, retrograde pyelogram, and stent placement Surgeon Rogelio Bear, II, DO Medical Practice Manager None Estimated Blood Loss 1 Findings Consistent with Post-Op Diagnosis Significant bulbar urethral stricture. Irritated prostate with large cryp ts/chambers. Severe Left hydronephrosis with obstructing stone in the distal ureter. Cloudy urine aspirated and sent for culture. Stent placed in good position. Catheter placed over wire due to significant stricture, inflamed prostate, and irregularity of the prostatic urethra. Specimens Urine Left Kidney for culture Drains 6 Fr Multilength Left Stent 18 Fr Coude catheter placed over wire. Anesthesia Type MAC Complications none Disposition Disposition: Recovery Room Indications Patient with obstruction. Patient found to have obstructing stone on the left. Presented with SIRS/early sepsis. Risks and benefits discussed at length. Description of Procedure Patient was consented and brought back to the operating room. Patient was placed under anesthesia in the supine position and moved to the dorsal lithotomy position. Patient was prepped and draped in the regular sterile fashion. A time out was completed. A 30degree Cystoscope was placed into the urethra and advanced. Within the bulbar urethra a significant stricture was encountered. A wire was utilized to placed through the lumen. The area was then dilated and the scope was able to advance. Within the prostatic urethra there was some irregularity with a large cryptic area/diverticulum/channel discovered near the Veru bilaterally. The prostate was severely inflamed. Patient also found to have high bladder neck. The scope was able to advance into the bladder and the entire bladder was examined. The UO's were identified. The UO was cannulized with a catheter and attempted to advance. A wire was necessary to transverse around the stone and likely the junction of the mid and distal ureter. With some manipulation the wire was able to advance. The catheter was able advance over the wire into the renal pelvis. Urine was able to be aspirated from the left kidney and sent for culture. The 5 Chinese open-ended catheter was pulled back and a retrograde pyelogram was completed. Significant hydronephrosis was noted. Hydroureter also appreciated. A wire was then placed. With the wire in place, a 6 Fr Double J stent was placed. It was confirmed with fluoroscopy. With the stent in place, the bladder was emptied. The scope was removed. On assessment of the urethra the area of dilation did appear to be improved. No significant tearing or fissure was appreciated. The stricture itself appears to have been well dilated. Due to the irregularity in the prostate, severe inflammation of the prostate, and the urethral stricture was decided to leave the catheter. The wire was maintained within the bladder. The scope was fully removed. A 18 Chinese coud catheter was placed on the wire and advanced into the bladder. The coud tip did allow entrance over the high bladder neck. The wire was removed and the bladder drained. The balloon was elevated. The patient was cleaned, aroused from anesthesia, and transferred to the pacu in stable condition having tolerated the procedure well with no complications. I was present and participated in all aspects of the procedure. The patient will be monitored in the PACU until transferred. Plan to maintain catheter for 1 to 3 days. Will plan to maintain stent with plans for broad-spectrum antibiotics and close monitoring with presumed septic infection with stone. Will await culture and likely will need full course of antibiotics prior to intervention on stone. Patient will be transferred to the floor for monitoring with hospitalist team. I attest to the content of the Intraoperative Record and any orders documented therein. Any exceptions are noted below.
--- NOTE | 2024-11-15 02:29 | Anesthesiology Progress Note ---
Date of Service November 15, 2024 Anesthesia Post Procedure Vital Signs Vital Signs: Temp Pulse Pulse Resp BP BP Pulse Ox 11/15/24 00:54 90 22 109/56 L 95 11/15/24 00:30 90 18 116/67 95 11/15/24 00:19 100.0 F H 11/15/24 00:15 91 H 24 116/65 95 11/14/24 23:45 96 H 25 H 98/66 L 95 11/14/24 23:30 96 H 25 H 97/69 L 95 11/14/24 23:22 96 H 22 101/68 95 11/14/24 23:00 99 H 22 150/85 H 95 11/14/24 22:30 100 H 20 143/72 H 95 11/14/24 22:26 100 H 22 95 11/14/24 22:11 103 H 11/14/24 22:05 103.1 F H 104 H 24 125/81 94 O2 Del Method 11/15/24 00:54 11/15/24 00:30 11/15/24 00:19 11/15/24 00:15 11/14/24 23:45 11/14/24 23:30 11/14/24 23:22 11/14/24 23:00 11/14/24 22:30 Room Air 11/14/24 22:26 Room Air 11/14/24 22:11 11/14/24 22:05 Room Air Transfer of Care Handoff Completed per policy Notes Mental Status: alert / awake / arousable and participated in evaluation Patient Amnestic to Procedure: Yes Nausea / Vomiting: adequately controlled Pain: adequately controlled Airway Patency, RR, SpO2: stable & adequate BP & HR: stable & adequate Hydration State: stable & adequate Anesthetic Complications: no major complications apparent and Pt Satisfied with anesthetic care
--- NOTE | 2024-11-15 04:49 | History & Physical Report ---
Date of Service November 15, 2024 Assessment & Plan (1) Sepsis: Plan: 59-year-old male with past medical history significant for type 2 diabetes, diabetic polyneuropathy, dyslipidemia, obstructive sleep apnea, allergic rhinitis, right heart enlargement, hypertension, history of CAD, morbid obesity, diverticulosis of large intestine, essential tremor, history of lymphadenopathy, mood disorder, schizophrenia, ADHD, bipolar disorder, history of kidney stones presents with left renal colic. Patient says since last 4 days having left flank pain associated with fever and chills. Has been not getting better and he came to the ER. Currently status post emergent cystoscopy and stent placement. Resting comfortably. Hemodynamics okay currently. Denies any headache. No runny nose or sore throat. Last night had dry cough. No chest pain or shortness of breath. Currently no nausea. No abdominal pain. No burning micturition. Normal bowel movements. Sepsis Renal colic left side CT scan showing 8 mm calculus in the distal left ureter 2 cm from the UV jessica ction with moderate left-sided hydro nephrosis and hydroureter Status post cystoscopy and stent placement On empiric Zosyn and Vanco Will follow cultures Monitor hemodynamics Diabetes Hold home p.o. medications Sliding scale Closely monitor Follow HbA1c levels Obstructive sleep apnea CPAP nightly Right heart enlargement Monitor for volume overload Morbid obesity Counseling GABRIEL Baseline creatinine 1 Presented creatinine 1.8 Avoid nephrotoxic agents Will follow repeat labs Hypertension Holding lisinopril for GABRIEL Will monitor Hyperlipidemia On statin History of CAD On statin History of mood disorder Schizophrenia Bipolar disorder ADHD Continue home medications DVT prophylaxis Heparin subcu Disposition Med/telemetry Full code. Admission and Anticipated Discharge Date Admission Date: November 15, 2024 History of Present Illness Chief Complaint: Left renal colic Primary Care Provider: Mario Alberto Archuleta MD 59-year-old male with past medical history significant for type 2 diabetes, diabetic polyneuropathy, dyslipidemia, obstructive sleep apnea, allergic rhinitis, right heart enlargement, hypertension, history of CAD, morbid obesity, diverticulosis of large intestine, essential tremor, history of lymphadenopathy, mood disorder, schizophrenia, ADHD, bipolar disorder, history of kidney stones presents with left renal colic. Patient says since last 4 days having left flank pain associated with fever and chills. Has been not getting better and he came to the ER. Currently status post emergent cystoscopy and stent placement. Resting comfortably. Hemodynamics okay currently. Denies any headache. No runny nose or sore throat. Last night had dry cough. No chest pain or shortness of breath. Currently no nausea. No abdominal pain. No burning micturition. Normal bowel movements. Past medical history. As mentioned above Past surgical history. Liver biopsy cervical left side. Colonoscopy. Dental surgery. Lumbar hemilaminectomy. Social history. No smoking. Alcohol rarely. No drug use. Family history. Brother had skin cancer. Mother had cancer. Sister has diabetes. Allergies Allergy/AdvReac Type Severity Reaction Status Date / Time Iodinated Contrast Media Allergy Intermediate itching Verified 11/15/24 00:44 Home Medications Medication Instructions Recorded Confirmed Type atorvastatin 80 mg tablet 80 mg PO HS 08/21/19 11/15/24 History gabapentin 300 mg capsule 300 mg PO BID 08/21/19 11/15/24 History gabapentin 300 mg capsule 600 mg PO HS 08/21/19 11/15/24 History lorazepam 1 mg tablet 1 mg PO HS 08/21/19 11/15/24 History metformin 1,000 mg tablet 1,000 mg PO BID 08/21/19 11/15/24 History methylphenidate HCl 20 mg 20 mg PO QAM 08/21/19 11/15/24 History tablet,extended release aripiprazole 20 mg tablet 20 mg PO DAILY 11/15/24 11/15/24 History docusate sodium 100 mg capsule 100 mg PO BID PRN Constipation 11/15/24 11/15/24 History (Col-Rite) empagliflozin 25 mg tablet 25 mg PO QAM 11/15/24 11/15/24 History (Jardiance) glipizide 10 mg tablet, extended 10 mg PO QAM 11/15/24 11/15/24 History release 24 hr lisinopril 10 mg tablet 10 mg PO DAILY 11/15/24 11/15/24 History [id number] 300 mcg-K 60 1 tab PO DAILY 11/15/24 11/15/24 History mcg-lycop 600 mcg-lutein 300 mcg tablet (Centrum Silver Men) semaglutide 2 mg/dose (8 mg/3 mL) 2 mg subcut WK 11/15/24 11/15/24 History subcutaneous pen injector (Ozempic) trazodone 150 mg tablet 150 mg PO HS 11/15/24 11/15/24 History Past Med/Surg History Problem List Acute hyperglycemia (Acute) Sepsis (Acute) Ureterolithiasis (Acute) Renal colic on left side (Acute) Acute pyelonephritis (Acute) Kidney stones Impotence (Acute Unknown) Right ankle pain (Acute) Encounter for pre-operative examination Colon polyp Medical History Schizophrenia Essential tremor Diabetic polyneuropathy Morbid obesity with BMI of 45.0-49.9, adult Diabetes mellitus, type 2 NIDDM Hgb A1C on 12/30/21 was 6.8 Bipolar disorder ADHD Hypertension Hyperlipidemia Sleep apnea cpap Surgical History History of cystoscopy 02/09/22 Bilateral retrograde pyelogram, attempted ureteroscopy, insertion of Bilateral Stent Catheter(Not Applicable) Hx of tooth extraction History of lymph node excision off left side of neck, benign tissue History of lumbar fusion History of colonoscopy with polypectomy History of wisdom tooth extraction Family History Mother Family history of diabetes mellitus Sister Family history of diabetes mellitus Sister Family history of diabetes mellitus Sister Family history of diabetes mellitus Other No family history of adverse response to anesthesia Social History Smoking Status: Never smoker Second Hand Exposure: Yes (IN THE PAST); Do You Dip or Chew Tobacco: No; Hx Alcohol Use: No Hx Substance Use: No Preferred Language: Chinese Communication Ability: Effective Trading Analyst Required: No Beliefs That Will Affect Care: None Current Living Situation: Alone Other Information That Helps Us Care for You: No Feels Safe at Home: Yes Safety Concerns: Feels Safe At This Time Assistive Devices: Denture - Upper, Denture - Lower and Glasses Review of Systems Review of Systems: All systems reviewed & are unremarkable except as noted in HPI & below Physical Exam Physical Exam: General- Not in distress Head- atraumatic Eyes- PERRL. ENT- oropharynx clear Neck- supple, no JVD. Lungs- clear to auscultation no wheezing or crackles. Heart- regular rhythm; no murmur, no gallop. Abdomen- normal bowel sounds, soft, nontender, no distension. Extremities- Mild pretibial edema, no erythema seen Neuro- alert, oriented PERRL, no facial palsy; no dysarthria; moves extremities Results & Data Results & Data Vital Signs (Past 12 Hours) Vital Signs Temp Pulse Pulse Resp BP BP Pulse Ox 11/15/24 04:11 11/15/24 04:00 36.5 C 68 18 100/70 93 11/15/24 03:45 36.6 C 69 18 94/65 L 94 11/15/24 03:30 36.6 C 70 18 105/71 92 11/15/24 02:47 36.8 C 78 18 94/69 L 94 11/15/24 02:38 36.4 C L 76 18 110/78 92 11/15/24 02:27 36.6 C 78 18 107/72 94 11/15/24 00:54 90 22 109/56 L 95 11/15/24 00:30 90 18 116/67 95 11/15/24 00:19 37.8 C H 11/15/24 00:15 91 H 24 116/65 95 11/15/24 00:00 11/14/24 23:45 96 H 25 H 98/66 L 95 11/14/24 23:30 96 H 25 H 97/69 L 95 11/14/24 23:22 96 H 22 101/68 95 11/14/24 23:00 99 H 22 150/85 H 95 11/14/24 22:30 100 H 20 143/72 H 95 11/14/24 22:26 100 H 22 95 11/14/24 22:11 103 H 11/14/24 22:05 39.5 C H 104 H 24 125/81 94 O2 Del Method 11/15/24 04:11 Room Air 11/15/24 04:00 Room Air 11/15/24 03:45 Room Air 11/15/24 03:30 Room Air 11/15/24 02:47 Room Air 11/15/24 02:38 Room Air 11/15/24 02:27 Room Air 11/15/24 00:54 11/15/24 00:30 11/15/24 00:19 11/15/24 00:15 11/15/24 00:00 Room Air 11/14/24 23:45 11/14/24 23:30 11/14/24 23:22 11/14/24 23:00 11/14/24 22:30 Room Air 11/14/24 22:26 Room Air 11/14/24 22:11 11/14/24 22:05 Room Air Diagnostic Findings Laboratory Results WBC 8.47 K/ul (4.8-10.8) 11/14/24 22: RBC 4.41 M/uL (4.70-6.10) L 11/14/24 22: Hgb 13.0 g/dl (14.0-18.0) L 11/14/24 22:30 Hct 37.7 % (42.0-52.0) L 11/14/24: MCV 85.5 fL (80.0-100.0) 11/14/24: MCH 29.5 pg (25.0-34.0) 11/14/24: MCHC 34.5 g/dL (32.0-36.0) 11/14/24: RDW Std Deviation 42.1 fL (36.4-46.3) 11/14/24: RDW Coeff of Angelia 13.4 % (11.5-14.5) 11/14/24: Plt Count 313 K/uL (130-400) 11/14/24: MPV 9.7 fL (9.4-12.4) 11/14/24: Immature Gran % (Auto) 0.4 % 11/14/24: Neut % (Auto) 87.0 % 11/14/24: Lymph % (Auto) 6.5 % 11/14/24: [place] % (Auto) 5.5 % 11/14/24: Eos % (Auto) 0.4 % 11/14/24: Baso % (Auto) 0.2 % 11/14/24: Neut # (Auto) 7.37 K/uL (1.40-6.50) H 11/14/24: Lymph # (Auto) 0.55 K/uL (1.20-3.40) L 11/14/24 22:30 [place] # (Auto) 0.47 K/uL (0.11-0.59) 11/14/24 22:30 Eos # (Auto) 0.03 K/uL (0.00-0.50) 11/14/24 22:30 Baso # (Auto) 0.02 K/uL (0.00-0.20) 11/14/24 22:30 Immature Gran # (Auto) 0.03 K/uL (0.01-0.20) 11/14/24 22:30 VBG pH 7.40 (7.36-7.41) 11/14/24 23:46 VBG pCO2 42 mmHg (38-50) 11/14/24 23:46 VBG pO2 37 mmHg 11/14/24 23:46 VBG HCO3 26 mmol/L 11/14/24 23:46 VBG O2 Saturation 70.9 % 11/14/24 23:46 VBG Base Excess 1.0 mEq/L 11/14/24 23:46 Sodium 133 mmol/L (136-145) L 11/14/24 22:30 Potassium 4.0 mmol/L (3.5-5.1) 11/14/24 22: Chloride 97 mmol/L (98-107) L 11/14/24 22:30 Carbon Dioxide 26 mmol/L (21-32) 11/14/24 22:30 Anion Gap 10 (3-11) 11/14/24 22: BUN 15 mg/dl (6-23) 11/14/24 22:30 Creatinine 1.88 mg/dl (0.6-1.4) H 11/14/24 22:30 Est Cr Clr Drug Dosing 71.3 ml/min 11/14/24 22: eGFR 41.16 11/14/24 22:30 BUN/Creatinine Ratio 8.0 (10-20) L 11/14/24 22:30 Glucose 359 mg/dl (70-99(Fasting)) H* 11/14/24 22:30 POC Glucose 367 mg/dl (70-99) H* 11/15/24 03:37 Lactate 1.8 mmol/L (0.4-2.0) 11/14/24 22: Calcium 9.3 mg/dl (8.6-10.3) 11/14/24 22: Magnesium 2.1 mg/dl (1.7-2.4) 11/14/24: Total Bilirubin 0.5 mg/dl (0.2-1.0) 11/14/24: Direct Bilirubin 0.1 mg/dl (0-0.2) 11/14/24: AST 13 U/L (13-39) 11/14/24: ALT 17 U/L (7-52) 11/14/24: Alkaline Phosphatase 67 U/L (34-104) 11/14/24: Troponin I High Sens 6.8 pg/ml (0-20) 11/14/24 Total Protein 8.3 gm/dl (6.0-8.3) 11/14/24 Albumin 3.8 gm/dl (3.4-5.0) 11/14/24 Procalcitonin 3.46 ng/ml (0-0.5) H 11/14/24: Urine Color Yellow 11/14/24: Urine Appearance Cloudy (Clear) A 11/14/24: Urine pH 6.0 (4.5-7.5) 11/14/24: Ur Specific [place] 1.026 (1.000-1.030) 11/14/24: Urine Protein 2+ (Negative) H 11/14/24: Urine Glucose (UA) 3+ (Negative) H 11/14/24: Urine Ketones Trace (Negative) H 11/14/24: Urine Blood 1+ (Negative) H 11/14/24: Urine Nitrite Positive (Negative) A 11/14/24: Urine Bilirubin Negative (Negative) 11/14/24: Urine Urobilinogen Negative (Negative) 11/14/24: Ur Leukocyte Esterase 2+ (Negative) H 11/14/24:30 Urine WBC (Auto) >50 /hpf (0-5) H 11/14/24: Urine RBC (Auto) 0-2 /hpf (0-2) 11/14/24 23: U Hyaline Cast (Auto) 0-2 /lpf (0-2) 11/14/24: U Epithel Cells (Auto) 0-2 /hpf (0-2) 11/14/24 23:30 Urine Bacteria (Auto) 4+ (None Seen) H 11/14/24 23:30 Urine Comment 11/14/24 23:30 Adenovirus (PCR) Not Detected (NotDetected) 11/14/24 22:10 B. pertussis DNA (PCR) Not Detected (NotDetected) 11/14/24 22:10 B.parapertussis DNA PCR Not Detected (NotDetected) 11/14/24 22:10 C. pneumoniae DNA (PCR) Not Detected (NotDetected) 11/14/24 22:10 Coronavirus OC43 (PCR) Not Detected (NotDetected) 11/14/24 22:10 Coronavirus HKU1 (PCR) Not Detected (NotDetected) 11/14/24 22:10 Coronavirus 229E (PCR) Not Detected (NotDetected) 11/14/24 22:10 SARS-CoV-2 (PCR) Not Detected (NotDetected) 11/14/24 22:10 Coronavirus NL63 (PCR) Not Detected (NotDetected) 11/14/24 22:10 Human Metapneumovir PCR Not Detected (NotDetected) 11/14/24 22:10 Influenza Type A (PCR) Not Detected (NotDetected) 11/14/24 22:10 Influenza Type B (PCR) Not Detected (NotDetected) 11/14/24 22:10 M. pneumoniae (PCR) Not Detected (NotDetected) 11/14/24 22:10 Parainfluenza 1 (PCR) Not Detected (NotDetected) 11/14/24 22:10 Parainfluenza 2 (PCR) Not Detected (NotDetected) 11/14/24 22:10 Parainfluenza 3 (PCR) Not Detected (NotDetected) 11/14/24 22:10 Parainfluenza 4 (PCR) Not Detected (NotDetected) 11/14/24 22:10 RSV (PCR) Not Detected (NotDetected) 11/14/24 22:10 Entero/Rhino (PCR) Not Detected (NotDetected) 11/14/24 22:10 Impressions Chest X-Ray 11/14/24 22:25 Exam(s): XR CXR 1 VIEW EXAM: XR Chest, 1 View CLINICAL HISTORY: Reason for exam: Sepsis. TECHNIQUE: Frontal view of the chest. COMPARISON: January 28, 2022 FINDINGS: Lungs: Small amount of left lung base subsegmental atelectasis, exaggerated by body habitus. No focal consolidation is seen. Pleural space: Unremarkable. No pneumothorax. Heart: Mild cardiomegaly, similar to previous. Mediastinum: Unremarkable. Normal mediastinal contour. Bones/joints: Unremarkable. No acute fracture. IMPRESSION: 1. Mild cardiomegaly, similar to previous. 2. Small amount of left lung base subsegmental atelectasis, exaggerated by body habitus. No focal consolidation is seen. Electronically signed by: Manuel Solis MD 11/15/24 00:27 AM Abdomen/Pelvis CT 11/14/24 22:26 Exam(s): CT ABDOMEN + PELVIS Without Contrast EXAM: CT Abdomen and Pelvis Without Intravenous Contrast CLINICAL HISTORY: Reason for exam: sepsis, left flank pain, hx stones. TECHNIQUE: Axial computed tomography images of the abdomen and pelvis without intravenous contrast. CTDI is 28.14 mGy and DLP is 1485.75 mGy-cm. Automated exposure control was utilized for the study. A dose lowering technique was utilized adhering to the principles of ALARA. COMPARISON: No relevant prior studies available. FINDINGS: Lung bases: Unremarkable. No mass. No consolidation. ABDOMEN: Liver: Fatty infiltration of the liver and hepatomegaly with the liver measuring 26 cm craniocaudad. No focal liver mass lesion is seen. Gallbladder and bile ducts: Unremarkable. No calcified stones. No ductal dilation. Pancreas: Unremarkable. No ductal dilation. Spleen: Unremarkable. No splenomegaly. Adrenals: Unremarkable. No mass. Kidneys and ureters: Moderate left-sided hydronephrosis and hydroureter down to a 8 mm calculus in the distal left ureter located 2 cm from the ureterovesicular junction. Mild dilation of the mid right ureter without ureterolithiasis or hydronephrosis on the right. Stomach and bowel: Unremarkable. No obstruction. No mucosal thickening. PELVIS: Appendix: No findings to suggest acute appendicitis. Bladder: Unremarkable. No stones. Reproductive: Unremarkable as visualized. ABDOMEN and PELVIS: Intraperitoneal space: Unremarkable. No free air. No significant fluid collection. Bones/joints: Previous instrumentation and fusion in the lower lumbar spine at L4-5. No acute fracture or subluxation is seen. Soft tissues: Unremarkable. Vasculature: Unremarkable. No abdominal aortic aneurysm. Lymph nodes: Unremarkable. No enlarged lymph nodes. IMPRESSION: Moderate left-sided hydronephrosis and hydroureter down to a 8 mm calculus in the distal left ureter located 2 cm from the ureterovesicular junction. Electronically signed by: Manuel Solis MD 11/15/24 00:19 AM ECG Additional Comments: ECG. Normal sinus rhythm rate of 97. No significant changes found. Code Status & VTE Plan VTE Prophylaxis Plan VTE Prophylaxis will be ordered: Yes
--- NOTE | 2024-11-15 08:35 | Fluoroscopy Report ---
FL retrograde includes kub CLINICAL HISTORY: LT CYSTO/STENT COMPARISON STUDY: None FLUOROSCOPY TIME: 35 seconds FLUOROSCOPY IMAGES: 7 EXPOSURE DOSE: 25 mGy FINDINGS: Fluoroscopy was provided for urologic procedure. IMPRESSION: Intraoperative fluoroscopy. ACT 112: Negative or not required by law. Electronically signed by: Carlos Carnes M.D. 11/15/2024 8:32 AM
--- NOTE | 2024-11-15 10:13 | Urology Progress Note ---
Date of Service November 15, 2024 Assessment & Plan (1) Ureterolithiasis: (2) Renal colic on left side: (3) Acute pyelonephritis: (4) Sepsis: Plan 59-year-old male with an obstructing left ureteral stone and concern for sepsis who underwent left ureteral stent placement. POD #1 s/p cystoscopy and left ureteral stent placement Patient underwent emergent left stent placement due to being febrile with concerns for infection at 0200 Tolerating the ureteral stent with minimal bother this morning. Labs reviewed -WBCs 8.47, hemoglobin 13.0, creatinine 1.88 Urine culture , blood cultures are both pending Galvan catheter in place, draining appropriately for maximal decompression. Continue supportive care and monitoring. Continue antibiotics and trend towards culture data. No plan for further urologic intervention during this admission. Will arrange outpatient follow-up with our service for catheter removal and definitive stone management after the infection has been treated. Urology will folow Please recontact our service for any questions or concerns Admission and Anticipated Discharge Date Admission Date: November 15, 2024 Subjective Patient resting comfortably in bed Denies fevers, chills, Nausea, vomiting Tolerating p.o. diet Denies flank or abdominal pain History of stones with surgical intervention in the past Review of Systems Constitutional: as per Subjective / HPI Genitourinary: + as per Subjective / HPI Physical Exam Constitutional: well developed, well nourished and + obese; no acute distress Respiratory: normal respiratory effort and able to speak in complete sentences Musculoskeletal: Extremities: extremities normal to inspection Psychiatric: Orientation: alert and oriented x 3 Genitourinary: catheter draining dark yellow Results & Data Vital Signs (Past 12 Hours) Vital Signs Temp Pulse Pulse Resp BP BP Pulse Ox 11/15/24 07:25 36.4 C L 58 L 20 135/85 95 11/15/24 05:36 36.5 C 64 18 113/77 95 11/15/24 04:40 36.5 C 64 18 104/70 94 11/15/24 04:11 11/15/24 04:00 36.5 C 68 18 100/70 93 11/15/24 03:45 36.6 C 69 18 94/65 L 94 11/15/24 03:30 36.6 C 70 18 105/71 92 11/15/24 02:47 36.8 C 78 18 94/69 L 94 11/15/24 02:38 36.4 C L 76 18 110/78 92 11/15/24 02:27 36.6 C 78 18 107/72 94 11/15/24 00:54 90 22 109/56 L 95 11/15/24 00:30 90 18 116/67 95 11/15/24 00:19 37.8 C H 11/15/24 00:15 91 H 24 116/65 95 11/15/24 00:00 11/14/24 23:45 96 H 25 H 98/66 L 95 11/14/24 23:30 96 H 25 H 97/69 L 95 11/14/24 23:22 96 H 22 101/68 95 11/14/24 23:00 99 H 22 150/85 H 95 11/14/24 22:30 100 H 20 143/72 H 95 11/14/24 22:26 100 H 22 95 11/14/24 22:11 103 H O2 Del Method 11/15/24 07:25 Room Air 11/15/24 05:36 Room Air 11/15/24 04:40 Room Air 11/15/24 04:11 Room Air 11/15/24 04:00 Room Air 11/15/24 03:45 Room Air 11/15/24 03:30 Room Air 11/15/24 02:47 Room Air 11/15/24 02:38 Room Air 11/15/24 02:27 Room Air 11/15/24 00:54 11/15/24 00:30 11/15/24 00:19 11/15/24 00:15 11/15/24 00:00 Room Air 11/14/24 23:45 11/14/24 23:30 11/14/24 23:22 11/14/24 23:00 11/14/24 22:30 Room Air 11/14/24 22:26 Room Air 11/14/24 22:11 PG Care Time/CCT Total # of Minutes Spent Total Time Spent with Patient: Total time spent is greater than 50% in coordination of care (as documented) at patient's floor/unit and/or counseling patient: Coding Level of Care Code None Diagnoses Ureterolithiasis N20.1 Renal colic on left side N23 Acute pyelonephritis N10 Sepsis A41.9
--- NOTE | 2024-11-15 12:40 | Pharmacy Report ---
Pharmacy PK ABX Note - Date of Service November 15, 2024 - Assessment and Plan Assessment * 59 year old M receiving VANCOMYCIN + ZOSYN for treatment of sepsis from urinary source. Of note pt did have emergent cystoscopy with placement of stent this hospitalization. * Pertitent H and hospital problems: obesity (BMI > 40), GABRIEL, T2DM, kidney stones * Pertinent microbiologic data includes: BLCXs and UCx pending. UA + for pyuria * Day # 1 of antimicrobial therapy. Plan Vancomycin * Loading dose: 2750 mg IV x 1 * Maintenance dose: 1500 mg IV every 24 hours * Regimen is predicted to achieve target AUC/ARSENIO of 400-600 mg/L.hr * Random level ordered for tomorrow AM as GABRIEL may improve quickly Pharmacy will continue to follow and will adjust dose/frequency as necessary. Thank you. Pharmacy has transitioned to AUC monitoring for vancomycin. AUC/ARSENIO is the p referred PK/PD target and is associated with decreased risk of nephrotoxicity compared to traditional trough targets.
[2024-11-15 12:41] LABS: A calco-baum cmplx NotReported Not Detected (NotDetected); Bact fragilis Not Reported Not Detected (NotDetected); Blood Culture Id Panel See PCR Comment (NotDetected); C auris Not Reported Not Detected (NotDetected); CTX-M Resistant Gene Not Detected (NotDetected); Calbicans Not Reported Not Detected (NotDetected); Candida glabrata Not Reported Not Detected (NotDetected); Candida krusei Not Reported Not Detected (NotDetected); Cneoformans/gatti Not Reported Not Detected (NotDetected); Cparapsilosis Not Reported Not Detected (NotDetected); Ctropicalis Not Reported Not Detected (NotDetected); E cloacae compx Not Reported Not Detected (NotDetected); Efaecalis Not Reported Not Detected (NotDetected); Efaecium Not Reported Not Detected (NotDetected); Enterobacterales DETECTED (NotDetected); Enterobacterales Not Reported DETECTED (NotDetected); Escherichia coli Not Reported DETECTED (NotDetected); H influenzae Not Reported Not Detected (NotDetected); IMP Resistant Gene Not Detected (NotDetected); K aerogenes Not Reported Not Detected (NotDetected); KPC Resistant Gene Not Detected (NotDetected); Koxytoca Not Reported Not Detected (NotDetected); Kpneumoniae grp Not Reported Not Detected (NotDetected); Lmonocyt Not Reported Not Detected (NotDetected); N meningitidis Not Reported Not Detected (NotDetected); NDM Resistant Gene Not Detected (NotDetected); OXA 48 Like Resistant Gene Not Detected (NotDetected); P aeruginosa Not Reported Not Detected (NotDetected); Proteus spp Not Reported Not Detected (NotDetected); Salmonella spp Not Reported Not Detected (NotDetected); Staph lugdunensis Not Reported Not Detected (NotDetected); Staph spp. Not Reported Not Detected (NotDetected); Staphaureus Not Reported Not Detected (NotDetected); Staphepi Not Reported Not Detected (NotDetected); Stenmaltophilia Not Reported Not Detected (NotDetected); Strep agal(GrpB) Not Reported Not Detected (NotDetected); Strep pneum Not Reported Not Detected (NotDetected); Strep pyog (GrpA) Not Reported Not Detected (NotDetected); Strep spp Not Reported Not Detected (NotDetected); VIM Resistant Gene Not Detected (NotDetected); mcr-1 Colistin Resistant Gene Not Detected (NotDetected)
--- NOTE | 2024-11-15 13:03 | Hospitalist Progress Note ---
Date of Service November 15, 2024 Assessment & Plan (1) Sepsis: Plan: 59-year-old male with past medical history significant for type 2 diabetes, diabetic polyneuropathy, dyslipidemia, obstructive sleep apnea, allergic rhinitis, right heart enlargement, hypertension, history of CAD, morbid obesity, diverticulosis of large intestine, essential tremor, history of lymphadenopathy, mood disorder, schizophrenia, ADHD, bipolar disorder, history of kidney stones presents with left renal colic. Patient says since last 4 days having left flank pain associated with fever and chills. Has been not getting better and he came to the ER. Currently status post emergent cystoscopy and stent placement. Resting comfortably. Hemodynamics okay currently. Denies any headache. No runny nose or sore throat. Last night had dry cough. No chest pain or shortness of breath. Currently no nausea. No abdominal pain. No burning micturition. Normal bowel movements. Sepsis Renal colic left side with fever and chills for 4 days- noted to have increased temperature, tachycardia and tachypnea on presentation CT scan showing 8 mm calculus in the distal left ureter 2 cm from the UV junction with moderate left-sided hydro nephrosis and hydroureter Status post cystoscopy and stent placement 1 11/15/2024 On empiric Zosyn and Vanco Awaiting urine and blood cultures results Appreciate urology input and recommendation He has been feeling much better following the procedure Will continue current management now Diabetes Hold home p.o. medications Sliding scale covers for now Closely monitor Follow HbA1c levels Obstructive sleep apnea CPAP nightly Right heart enlargement Monitor for volume overload No signs and or symptoms of volume overload Morbid obesity Counseling GABRIEL Baseline creatinine 1 Presented creatinine 1.8 Avoid nephrotoxic agents Will follow repeat labs Hypertension Holding lisinopril for GABRIEL Will monitor Hyperlipidemia On statin History of CAD On statin History of mood disorder Schizophrenia Bipolar disorder ADHD Continue home medications DVT prophylaxis Heparin subcu Disposition Med/telemetry Full code. Admission and Anticipated Discharge Date Admission Date: November 15, 2024 Subjective 11/15/2024 The patient was seen and examined in medical telemetry unit He is status post cystoscopy with urethral dilatation left retrograde pyelogram, and difficult catheter and stent placement on 11/15/2024 He has been feeling much better following the procedure and denies any abdominal and/or back pain Does not have any other significant symptoms Review of Systems Review of Systems: All systems reviewed and are unremarkable except as noted below Physical Exam Physical Exam: Lying in bed without any acute distress Constitutional: well developed, well nourished, + ill appearing and + morbidly obese Eyes: PERRL, conjunctivae normal, anicteric sclerae ENMT: external ear and nose normal, oropharynx normal Neck: trachea midline, no thyromegaly Respiratory: no respiratory distress Auscultation: lungs clear to auscultation bilaterally and + diminished lung sounds Cardiovascular: Rate/Rhythm: regular rate and regular rhythm; not tachycardic Heart Sounds: normal S1 and normal S2; no murmur Extremities: + edema ( trace edema bilaterally) Gastrointestinal (Abdomen): Inspection/Auscultation: + abdomen distended and normal bowel sounds Percussion/Palpation: abdomen soft; abdomen nontender ( renal angles are not tender) Musculoskeletal: No acute arthritis involving any of the joint Neurologic: normal touch/pain/proprioception and moves all extremities; no focal motor deficits Psychiatric: A+Ox3, euthymic affect Lymphatic: no cervical or axillary lymphadenopathy Results & Data Results & Data Vital Signs (Past 12 Hours) Vital Signs Temp Pulse Pulse Resp BP BP BP 11/15/24 12:08 37.0 C 67 18 123/81 11/15/24 07:25 36.4 C L 58 L 20 135/85 11/15/24 05:55 62 11/15/24 05:36 36.5 C 64 18 113/77 11/15/24 04:40 36.5 C 64 18 104/70 11/15/24 04:11 11/15/24 04:00 36.5 C 68 18 100/70 11/15/24 03:45 36.6 C 69 18 94/65 L 11/15/24 03:30 36.6 C 70 18 105/71 11/15/24 02:47 36.8 C 78 18 94/69 L 11/15/24 02:38 36.4 C L 76 18 110/78 11/15/24 02:27 36.6 C 78 18 107/72 11/15/24 00:54 90 22 109/56 L Pulse Ox O2 Del Method 11/15/24 12:08 94 Room Air 11/15/24 07:25 95 Room Air 11/15/24 05:55 11/15/24 05:36 95 Room Air 11/15/24 04:40 94 Room Air 11/15/24 04:11 Room Air 11/15/24 04:00 93 Room Air 11/15/24 03:45 94 Room Air 11/15/24 03:30 92 Room Air 11/15/24 02:47 94 Room Air 11/15/24 02:38 92 Room Air 11/15/24 02:27 94 Room Air 11/15/24 00:54 95 Laboratory Results Short CBC 11/14/24 Range/Units 22:30 WBC 8.47 (4.8-10.8) K/ul Hgb 13.0 L (14.0-18.0) g/dl Hct 37.7 L (42.0-52.0) % Plt Count 313 (130-400) K/uL BMP 11/14/24 22:30 Sodium 133 L Potassium 4.0 Chloride 97 L Carbon Dioxide 26 BUN 15 Creatinine 1.88 H Glucose 359 H* Calcium 9.3 Liver Function 11/14/24 Range/Units 22:30 Total Bilirubin 0.5 (0.2-1.0) mg/dl Direct Bilirubin 0.1 (0-0.2) mg/dl AST 13 (13-39) U/L ALT 17 (7-52) U/L Alkaline Phosphatase 67 (34-104) U/L Albumin 3.8 (3.4-5.0) gm/dl Urine 11/14/24 Range/Units 23:30 Urine Color Yellow Urine Appearance Cloudy A (Clear) Urine pH 6.0 (4.5-7.5) Ur Specific [place] 1.026 (1.000-1.030) Urine Protein 2+ H (Negative) Urine Glucose (UA) 3+ H (Negative) Medications Administered Current Inpatient Medications Aripiprazole (Aripiprazole 10 Mg Tab) 20 mg PO DAILY [facility] Stop: 12/15/24 08:59 Last Admin: 11/15/24 08:46 Dose: 20 mg Atorvastatin Calcium (Atorvastatin 40 Mg Tab) 80 mg PO HS [facility] Stop: 12/15/24 20:59 Dextrose (Dextrose 50% 50 Ml Syringe) 25 - 50 ml IV UD PRN; Protocol PRN Reason: Hypoglycemia Protocol Stop: 12/15/24 03:35 Docusate Sodium (Docusate Sodium 100 Mg Cap) 100 mg PO BID PRN PRN Reason: Constipation Stop: 12/15/24 03:35 Gabapentin (Gabapentin 600 Mg Tab) 600 mg PO HS [facility] Stop: 12/15/24 20:59 Gabapentin (Gabapentin 300 Mg Cap) 300 mg PO BID@0900,1400 [facility] Stop: 12/15/24 08:59 Last Admin: 11/15/24 08:46 Dose: 300 mg Glucagon (Glucagon For Inj 1 Mg Vial) 1 mg SQ UD PRN; Protocol PRN Reason: Hypoglycemia Protocol Stop: 12/15/24 03:35 Glucose (Glucose 40% Gel 15 Gm Tube) 15 - 30 gm PO UD PRN; Protocol PRN Reason: Hypoglycemia Protocol Stop: 12/15/24 03:35 Glucose (Glucose 10 Tab/Tube) 4 - 8 tab PO UD PRN; Protocol PRN Reason: Hypoglycemia Protocol Stop: 12/15/24 03:35 Heparin Sodium (Porcine) (Heparin Sod 5,000 Unit/0.5 Ml Vial) 7,500 units SQ Q12 [facility] Stop: 12/15/24 08:59 Last Admin: 11/15/24 08:55 Dose: 7,500 units Sodium Chloride (Nss) 1,000 mls @ 75 mls/hr IV .[id number] [facility] Stop: 11/15/24 16:06 Last Admin: 11/15/24 03:58 Dose: 125 mls/hr Piperacillin Sod/Tazobactam Sod (Zosyn) 4.5 gm in 100 mls @ 25 mls/hr IV Q8H [facility]; Protocol Stop: 11/25/24 05:59 Last Infusion: 11/15/24 08:57 Dose: Infused Acetaminophen (Ofirmev) 1,000 mg in 100 mls @ 400 mls/hr IV Q8H PRN PRN Reason: Pain or Fever Stop: 11/18/24 04:10 Last Infusion: 11/15/24 04:59 Dose: Infused Vancomycin HCl 1,500 mg/ (Sodium Chloride) 530 mls @ 200 mls/hr IV Q24H [facility] Stop: 11/25/24 15:59 Insulin Aspart (Insulin Aspart Per Unit Charge) 0 units SC ACHS [facility] Stop: 12/15/24 07:29 Last Admin: 11/15/24 12:33 Dose: 11 units Lorazepam (Lorazepam 1 Mg Tab) 1 mg PO HS [facility] Stop: 12/15/24 20:59 Miscellaneous (Carbohydrates For Hypoglycemia ) 15 - 30 gm PO UD PRN PRN Reason: Hypoglycemia Protocol Stop: 12/15/24 03:35 Miscellaneous (Methylphenidate 20 Mg Ext Rel - Order Awaiting Action) 1 each N/A QS [facility] Stop: 12/15/24 07:59 Last Admin: 11/15/24 08:45 Dose: Not Given Miscellaneous Information (Vancomycin Consult Active) 1 each N/A UD PRN PRN Reason: Consult Stop: 12/14/24 23:28 Multivitamins/Minerals (Cerovite Adv Formula Tab) 1 tab PO DAILY [facility] Stop: 12/15/24 08:59 Last Admin: 11/15/24 08:46 Dose: 1 tab Nitroglycerin (Nitroglycerin Sl 0.4 Mg/Tab Tab) 0.4 mg SL Q5M PRN PRN Reason: Chest Pain Stop: 12/15/24 03:35 Ondansetron HCl (Ondansetron Inj 2 Mg/Ml 2 Ml Vial) 4 mg IV Q6H PRN PRN Reason: Nausea Stop: 12/15/24 03:35 Phenazopyridine HCl (Phenazopyridine Hcl 100 Mg Tab) 100 mg PO TID PRN PRN Reason: Dysuria Stop: 11/19/24 04:10 Last Admin: 11/15/24 04:45 Dose: 100 mg Trazodone HCl (Trazodone Hcl 50 Mg Tab) 150 mg PO HS [facility] Stop: 12/15/24 20:59
[2024-11-15 13:21] LABS: Basophils # (auto) 0.03 K/uL (0.00-0.20); Basophils % (auto) 0.4 %; Eosinophils # (auto) 0.07 K/uL (0.00-0.50); Eosinophils % (auto) 0.9 %; Hematocrit (blood only) 35.1 % (42.0-52.0); Hemoglobin 11.4 g/dl (14.0-18.0); Immature Granulocytes # (auto) 0.02 K/uL (0.01-0.20); Immature Granulocytes % (auto) 0.2 %; Lymphocytes # (auto) 0.85 K/uL (1.20-3.40); Lymphocytes % (auto) 10.5 %; Mean Corpuscular Hgb Conc 32.5 g/dL (32.0-36.0); Mean Corpuscular Volume 89.3 fL (80.0-100.0); Mean Platelet Volume 9.6 fL (9.4-12.4); Monocytes # (auto) 0.68 K/uL (0.11-0.59); Monocytes % (auto) 8.4 %; Neutrophils # (auto) 6.42 K/uL (1.40-6.50); Neutrophils % (auto) 79.6 %; Platelet Count 295 K/uL (130-400); RDW Coefficient of Variation 13.6 % (11.5-14.5); RDW Standard Deviation 44.8 fL (36.4-46.3); Red Blood Count 3.93 M/uL (4.70-6.10); White Blood Count 8.07 K/ul (4.8-10.8)
[2024-11-15 13:59] LABS: Estimated Average Glucose 200 mg/dl; Hemoglobin A1C 8.6 % (4.5-5.6)
[2024-11-15 14:00] LABS: Calcium 9.1 mg/dl (8.6-10.3); Creatinine Clr Calc Pharmacy 80.3 ml/min; Potassium 4.3 mmol/L (3.5-5.1)
--- NOTE | 2024-11-15 14:02 | Electrocardiogram Report ---
Test Reason : Blood Pressure : */* mmHG Vent. Rate : 97 BPM Atrial Rate : 97 BPM P-R Int : 162 ms QRS Dur : 84 ms QT Int : 314 ms P-R-T Axes : 19 -2 36 degrees QTcB Int : 398 ms Normal sinus rhythm Low voltage QRS Cannot rule out Anterior infarct (cited on or before 28-Jan-2022) Abnormal ECG When compared with ECG of 28-Jan-2022 10:55, No significant change was found Confirmed by Reggie Cruz [id number]) on 11/15/2024 2:02:48 PM Referred By: REFERRED SELF Confirmed By: Reggie Cruz
[2024-11-16 06:59] LABS: Creatinine Clr Calc Pharmacy 93.9 ml/min
--- NOTE | 2024-11-16 09:23 | Urology Progress Note ---
Date of Service November 16, 2024 Assessment & Plan (1) Ureterolithiasis: Plan: Recovering appropriately s/p ureteral stent placement Should have adequate source control with stent and Galvan catheter in place. Blood cultures preliminary positive with gram-negative rods. Would continue with broad-spectrum antibiotics until culture sensitivities result. No plan for additional urologic intervention at this time. Maintain stent and catheter in place. Urology will coordinate outpatient follow-up/will sign off for now. Please call with any questions or concerns. Admission and Anticipated Discharge Date Admission Date: November 15, 2024 Subjective Feeling well this morning Denies any significant pain from his stent Denies any fevers Thinks he might have passed a stone Physical Exam Physical Exam: Well-appearing, NAD Resting in bed Oxygen by nasal cannula Results & Data Vital Signs (Past 12 Hours) Vital Signs Temp Pulse Pulse Resp BP BP Pulse Ox 11/16/24 07:32 36.8 C 75 18 137/84 96 11/16/24 03:36 11/16/24 02:44 36.8 C 76 16 122/78 94 11/15/24 22:43 11/15/24 22:25 11/15/24 22:15 36.9 C 67 18 121/75 97 11/15/24 21:47 66 Pulse Ox O2 Del Method O2 Del Method O2 Flow Rate O2 Flow Rate 11/16/24 07:32 Nasal Cannula 2 11/16/24 03:36 95 Nasal Cannula 2 11/16/24 02:44 Nasal Cannula 2 11/15/24 22:43 Room Air, Nasal Cannula 2 11/15/24 22:25 96 Room Air 11/15/24 22:15 Nasal Cannula 2 11/15/24 21:47 PG Care Time/CCT Total # of Minutes Spent Total Time Spent with Patient: Total time spent is greater than 50% in coordination of care (as documented) at patient's floor/unit and/or counseling patient: Coding Level of Care Code 37693 SUB INP/OBS CARE 07/20MIN Diagnoses Ureterolithiasis N20.1
--- NOTE | 2024-11-16 13:43 | Hospitalist Progress Note ---
Date of Service November 16, 2024 Assessment & Plan (1) Sepsis: Plan: 59-year-old male with past medical history significant for type 2 diabetes, diabetic polyneuropathy, dyslipidemia, obstructive sleep apnea, allergic rhinitis, right heart enlargement, hypertension, history of CAD, morbid obesity, diverticulosis of large intestine, essential tremor, history of lymphadenopathy, mood disorder, schizophrenia, ADHD, bipolar disorder, history of kidney stones presents with left renal colic. Patient says since last 4 days having left flank pain associated with fever and chills. Has been not getting better and he came to the ER. Currently status post emergent cystoscopy and stent placement. Resting comfortably. Hemodynamics okay currently. Denies any headache. No runny nose or sore throat. Last night had dry cough. No chest pain or shortness of breath. Currently no nausea. No abdominal pain. No burning micturition. Normal bowel movements. Sepsis Renal colic left side with fever and chills for 4 days- noted to have increased temperature, tachycardia and tachypnea on presentation CT scan showing 8 mm calculus in the distal left ureter 2 cm from the UV junction with moderate left-sided hydro nephrosis and hydroureter Status post cystoscopy and stent placement 1 11/15/2024 On empiric Zosyn and Vanco Awaiting urine and blood cultures results Appreciate urology input and recommendation He has been feeling much better following the procedure Will continue current management now Blood and urine cultures came back positive for E. coli which is pansensitive Antibiotic changed to ceftriaxone 2 g IV every 12 hourly and vancomycin has been discontinued Has not had any ID evaluation yet Likely to have PT OT evaluation prior to discharge and plan to send him home on oral Levaquin if there is no ID input within the next day or 2 Diabetes Hold home p.o. medications Sliding scale covers for now Closely monitor Follow HbA1c levels-elevated at 8.6 Obstructive sleep apnea CPAP nightly Right heart enlargement Monitor for volume overload No signs and or symptoms of volume overload Morbid obesity Counseling GABRIEL Baseline creatinine 1 Presented creatinine 1.8 Avoid nephrotoxic agents Will follow repeat labs-creatinine shows improvement in the level of 1.43 Hypertension Holding lisinopril for GABRIEL Will monitor Hyperlipidemia On statin History of CAD On statin History of mood disorder Schizophrenia Bipolar disorder ADHD Continue home medications DVT prophylaxis Heparin subcu Disposition Med/telemetry Full code. Will get PT and OT evaluation prior to discharge Admission and Anticipated Discharge Date Admission Date: November 15, 2024 Subjective 11/15/2024 The patient was seen and examined in medical telemetry unit He is status post cystoscopy with urethral dilatation left retrograde pyelogram, and difficult catheter and stent placement on 11/15/2024 He has been feeling much better following the procedure and denies any abdominal and/or back pain Does not have any other significant symptoms 11/16/2024 The patient was seen and examined in medical telemetry unit He has been feeling much better denies any significant symptoms No fever no chills, no abdominal pain nausea or vomiting and no back pain He has not had moved out of bed yet Review of Systems Review of Systems: All systems reviewed and are unremarkable except as noted below Physical Exam Physical Exam: Lying in bed without any acute distress Constitutional: well developed, well nourished, + ill appearing and + morbidly obese Eyes: PERRL, conjunctivae normal, anicteric sclerae ENMT: external ear and nose normal, oropharynx normal Neck: trachea midline, no thyromegaly Respiratory: no respiratory distress Auscultation: lungs clear to auscultation bilaterally and + diminished lung sounds Cardiovascular: Rate/Rhythm: regular rate and regular rhythm; not tachycardic Heart Sounds: normal S1 and normal S2; no murmur Extremities: + edema ( trace edema bilaterally) Gastrointestinal (Abdomen): Inspection/Auscultation: + abdomen distended and normal bowel sounds Percussion/Palpation: abdomen soft; abdomen nontender ( renal angles are not tender) Neurologic: normal touch/pain/proprioception and moves all extremities; no focal motor deficits Psychiatric: A+Ox3, euthymic affect Lymphatic: no cervical or axillary lymphadenopathy Results & Data Results & Data Vital Signs (Past 12 Hours) Vital Signs Temp Pulse Pulse Resp BP BP Pulse Ox 11/16/24 11:18 36.9 C 68 18 120/78 90 11/16/24 08:00 72 11/16/24 07:32 36.8 C 75 18 137/84 96 11/16/24 03:36 11/16/24 02:44 36.8 C 76 16 122/78 94 Pulse Ox O2 Del Method O2 Del Method O2 Flow Rate O2 Flow Rate 11/16/24 11:18 Room Air 11/16/24 08:00 11/16/24 07:32 Nasal Cannula 2 11/16/24 03:36 95 Nasal Cannula 2 11/16/24 02:44 Nasal Cannula 2 Laboratory Results BMP 11/15/24 11/16/24 13:05 06:15 Sodium 134 L Potassium 4.3 Chloride 100 Carbon Dioxide 27 BUN 15 Creatinine 1.67 H 1.43 H Glucose 379 H* Calcium 9.1 Medications Administered Current Inpatient Medications Aripiprazole (Aripiprazole 10 Mg Tab) 20 mg PO DAILY [facility] Stop: 12/15/24 08:59 Last Admin: 11/16/24 07:44 Dose: 20 mg Atorvastatin Calcium (Atorvastatin 40 Mg Tab) 80 mg PO HS [facility] Stop: 12/15/24 20:59 Last Admin: 11/15/24 21:54 Dose: 80 mg Dextrose (Dextrose 50% 50 Ml Syringe) 25 - 50 ml IV UD PRN; Protocol PRN Reason: Hypoglycemia Protocol Stop: 12/15/24 03:35 Docusate Sodium (Docusate Sodium 100 Mg Cap) 100 mg PO BID PRN PRN Reason: Constipation Stop: 12/15/24 03:35 Gabapentin (Gabapentin 600 Mg Tab) 600 mg PO HS [facility] Stop: 12/15/24 20:59 Last Admin: 11/15/24 21:53 Dose: 600 mg Gabapentin (Gabapentin 300 Mg Cap) 300 mg PO BID@0900,1400 [facility] Stop: 12/15/24 08:59 Last Admin: 11/16/24 13:24 Dose: 300 mg Glucagon (Glucagon For Inj 1 Mg Vial) 1 mg SQ UD PRN; Protocol PRN Reason: Hypoglycemia Protocol Stop: 12/15/24 03:35 Glucose (Glucose 40% Gel 15 Gm Tube) 15 - 30 gm PO UD PRN; Protocol PRN Reason: Hypoglycemia Protocol Stop: 12/15/24 03:35 Glucose (Glucose 10 Tab/Tube) 4 - 8 tab PO UD PRN; Protocol PRN Reason: Hypoglycemia Protocol Stop: 12/15/24 03:35 Heparin Sodium (Porcine) (Heparin Sod 5,000 Unit/0.5 Ml Vial) 7,500 units SQ Q12 [facility] Stop: 12/15/24 08:59 Last Admin: 11/16/24 07:52 Dose: 7,500 units Acetaminophen (Ofirmev) 1,000 mg in 100 mls @ 400 mls/hr IV Q8H PRN PRN Reason: Pain or Fever Stop: 11/18/24 04:10 Last Infusion: 11/15/24 17:28 Dose: Infused Ceftriaxone Sodium (Rocephin) 2,000 mg in 50 mls @ 100 mls/hr IV Q12 [facility] Stop: 11/30/24 10:14 Last Infusion: 11/16/24 11:50 Dose: Infused Insulin Aspart (Insulin Aspart Per Unit Charge) 0 units SC ACHS [facility] Stop: 12/15/24 07:29 Last Admin: 11/16/24 12:31 Dose: 18 units Insulin Glargine (Lantus Per Unit Charge) 20 units SC DAILY [facility] Stop: 12/16/24 08:59 Last Admin: 11/16/24 09:12 Dose: 20 units Lorazepam (Lorazepam 1 Mg Tab) 1 mg PO HS [facility] Stop: 12/15/24 20:59 Last Admin: 11/15/24 21:52 Dose: 1 mg Miscellaneous (Carbohydrates For Hypoglycemia ) 15 - 30 gm PO UD PRN PRN Reason: Hypoglycemia Protocol Stop: 12/15/24 03:35 Miscellaneous (Methylphenidate 20 Mg Ext Rel - Order Awaiting Action) 1 each N/A QS [facility] Stop: 12/15/24 07:59 Last Admin: 11/16/24 07:43 Dose: Not Given Miscellaneous Information (Pharmacy Glycemic Mgmt Consult) 1 each N/A UD PRN; Protocol PRN Reason: Consult Stop: 12/15/24 15:02 Multivitamins/Minerals (Cerovite Adv Formula Tab) 1 tab PO DAILY [facility] Stop: 12/15/24 08:59 Last Admin: 11/16/24 07:44 Dose: 1 tab Nitroglycerin (Nitroglycerin Sl 0.4 Mg/Tab Tab) 0.4 mg SL Q5M PRN PRN Reason: Chest Pain Stop: 12/15/24 03:35 Ondansetron HCl (Ondansetron Inj 2 Mg/Ml 2 Ml Vial) 4 mg IV Q6H PRN PRN Reason: Nausea Stop: 12/15/24 03:35 Phenazopyridine HCl (Phenazopyridine Hcl 100 Mg Tab) 100 mg PO TID PRN PRN Reason: Dysuria Stop: 11/19/24 04:10 Last Admin: 11/15/24 04:45 Dose: 100 mg Trazodone HCl (Trazodone Hcl 50 Mg Tab) 150 mg PO HS [facility] Stop: 12/15/24 20:59 Last Admin: 11/15/24 21:54 Dose: 150 mg
--- NOTE | 2024-11-16 14:53 | Pharmacy Report ---
Pharmacy Glycemic Short Note 2 - Date of Service November 16, 2024 - Glycemic Short BSG Results (Last 24 hours): 11/15/24 11/15/24 11/15/24 15:53 16:59 20:52 POC Glucose 301 H* 192 H 279 H 11/16/24 11/16/24 11/16/24 02:15 06:04 08:04 POC Glucose 235 H 233 H 246 H 11/16/24 12:02 POC Glucose 247 H OUTPATIENT ANTIDIABETIC REGIMEN: * Jardiance 25mg PO QAM * glipizide ER 10mg PO QAM * metformin 1000mg PO BID * Ozempic 2mg SQ QWK * HbA1c 8.6% (11/15/24) ASSESSMENT: * Ruben is a 59 year old male admitted with UTI/kidney stone with a history of T2DM. Pharmacy has been consulted to assist with glycemic managemnt while inpatient. * BSGs elevated on admission and continually elevated yesterday. Basal insulin initiated at a weight based stress of 1.5. Will increase up to a weight based stress of 2 based on BSG. * NovoLog significantly tightened to a weight based stress of 2.5. PLAN FOR INPATIENT GLYCEMIC CONTROL: * Hold outpatient oral diabetes medications * Basal insulin * Lantus 20 units SQ daily * Lantus 0-20 units SQ HS based on BSG (see eMAR for additional details) * Bolus insulin * NovoLog per scale ACHS or Q6hrs while NPO * Goal Range: Low 110 mg/dL - High 140 mg/dL * Correction Factor: 12 mg/dL/unit * Nutritional / Prandial insulin per carb ratio of 1 unit per 5 grams CHO consumed
[2024-11-17 07:17] LABS: Basophils # (auto) 0.03 K/uL (0.00-0.20); Basophils % (auto) 0.5 %; Eosinophils # (auto) 0.09 K/uL (0.00-0.50); Eosinophils % (auto) 1.5 %; Hematocrit (blood only) 35.2 % (42.0-52.0); Hemoglobin 11.4 g/dl (14.0-18.0); Immature Granulocytes # (auto) 0.02 K/uL (0.01-0.20); Immature Granulocytes % (auto) 0.3 %; Lymphocytes # (auto) 1.48 K/uL (1.20-3.40); Lymphocytes % (auto) 24.7 %; Mean Corpuscular Hemoglobin 28.9 pg (25.0-34.0); Mean Corpuscular Hgb Conc 32.4 g/dL (32.0-36.0); Mean Corpuscular Volume 89.3 fL (80.0-100.0); Mean Platelet Volume 9.7 fL (9.4-12.4); Monocytes # (auto) 0.41 K/uL (0.11-0.59); Monocytes % (auto) 6.8 %; Neutrophils # (auto) 3.97 K/uL (1.40-6.50); Neutrophils % (auto) 66.2 %; Platelet Count 308 K/uL (130-400); RDW Coefficient of Variation 13.6 % (11.5-14.5); RDW Standard Deviation 45.2 fL (36.4-46.3); Red Blood Count 3.94 M/uL (4.70-6.10)
[2024-11-17 07:53] LABS: BUN Creatinine Ratio 11.6 (10-20); Calcium 9.2 mg/dl (8.6-10.3); Creatinine Clr Calc Pharmacy 111.4 ml/min; Potassium 4.2 mmol/L (3.5-5.1)
[2024-11-17 12:24] VITALS: RESP 18
--- NOTE | 2024-11-17 12:55 | Hospitalist Progress Note ---
Date of Service November 17, 2024 Assessment & Plan (1) Sepsis: Plan: 59-year-old male with past medical history significant for type 2 diabetes, diabetic polyneuropathy, dyslipidemia, obstructive sleep apnea, allergic rhinitis, right heart enlargement, hypertension, history of CAD, morbid obesity, diverticulosis of large intestine, essential tremor, history of lymphadenopathy, mood disorder, schizophrenia, ADHD, bipolar disorder, history of kidney stones presents with left renal colic. Patient says since last 4 days having left flank pain associated with fever and chills. Has been not getting better and he came to the ER. Currently status post emergent cystoscopy and stent placement. Resting comfortably. Hemodynamics okay currently. Denies any headache. No runny nose or sore throat. Last night had dry cough. No chest pain or shortness of breath. Currently no nausea. No abdominal pain. No burning micturition. Normal bowel movements. Sepsis Renal colic left side with fever and chills for 4 days- noted to have increased temperature, tachycardia and tachypnea on presentation CT scan showing 8 mm calculus in the distal left ureter 2 cm from the UV junction with moderate left-sided hydro nephrosis and hydroureter Status post cystoscopy and stent placement 1 11/15/2024 On empiric Zosyn and Vanco Awaiting urine and blood cultures results Appreciate urology input and recommendation He has been feeling much better following the procedure Will continue current management now Blood and urine cultures came back positive for E. coli which is pansensitive Antibiotic changed to ceftriaxone 2 g IV every 12 hourly and vancomycin has been discontinued Has not had any ID evaluation yet Likely to have PT OT evaluation prior to discharge and plan to send him home on oral Levaquin if there is no ID input within the next day or 2 Patient refused to have PT and OT evaluation as he is doing at his baseline He wants to go home today He was given oral Cipro to continue for the next 10 days to complete the course of antibiotic He will have the catheter in situ and will be seen by urologist as an outpatient Diabetes Hold home p.o. medications Sliding scale covers for now Closely monitor Follow HbA1c levels-elevated at 8.6 Obstructive sleep apnea CPAP nightly Right heart enlargement Monitor for volume overload No signs and or symptoms of volume overload Morbid obesity Counseling GABRIEL Baseline creatinine 1 Presented creatinine 1.8 Avoid nephrotoxic agents Will follow repeat labs-creatinine shows improvement in the level of 1.43 Advised to drink more fluid Hypertension Holding lisinopril for GABRIEL Will monitor Hyperlipidemia On statin History of CAD On statin History of mood disorder Schizophrenia Bipolar disorder ADHD Continue home medications DVT prophylaxis Heparin subcu Disposition Med/telemetry Full code. Will get PT and OT evaluation prior to discharge Did not want to stay to do the physical therapy Admission and Anticipated Discharge Date Admission Date: November 15, 2024 Subjective 11/15/2024 The patient was seen and examined in medical telemetry unit He is status post cystoscopy with urethral dilatation left retrograde pyelogram, and difficult catheter and stent placement on 11/15/2024 He has been feeling much better following the procedure and denies any abdominal and/or back pain Does not have any other significant symptoms 11/16/2024 The patient was seen and examined in medical telemetry unit He has been feeling much better denies any significant symptoms No fever no chills, no abdominal pain nausea or vomiting and no back pain He has not had moved out of bed yet 11/17/2024 The patient was seen and examined in medical telemetry unit He has been feeling much better and wants to go home Denies any significant symptoms and seems to be he is at his baseline with activities He remains afebrile, without any abdominal and/or back pain He will be discharged home this afternoon Review of Systems Review of Systems: All systems reviewed and are unremarkable except as noted below Physical Exam Physical Exam: Lying in bed without any acute distress Constitutional: well developed, well nourished, + ill appearing and + morbidly obese Eyes: PERRL, conjunctivae normal, anicteric sclerae ENMT: external ear and nose normal, oropharynx normal Neck: trachea midline, no thyromegaly Respiratory: no respiratory distress Auscultation: lungs clear to auscultation bilaterally and + diminished lung sounds Cardiovascular: Rate/Rhythm: regular rate and regular rhythm; not tachycardic Heart Sounds: normal S1 and normal S2; no murmur Extremities: + edema ( trace edema bilaterally) Gastrointestinal (Abdomen): Inspection/Auscultation: + abdomen distended and normal bowel sounds Percussion/Palpation: abdomen soft; abdomen nontender ( renal angles are not tender) Neurologic: normal touch/pain/proprioception and moves all extremities; no focal motor deficits Lymphatic: no cervical or axillary lymphadenopathy Results & Data Results & Data Vital Signs (Past 12 Hours) Vital Signs Temp Pulse Resp BP Pulse Ox O2 Del Method O2 Flow Rate 11/17/24 12:23 37.4 C 76 18 124/74 93 Room Air 11/17/24 08:06 36.9 C 74 19 128/77 91 Room Air 11/17/24 07:20 Room Air 11/17/24 02:31 36.9 C 69 18 121/79 97 Nasal Cannula 2 Laboratory Results Short CBC 11/17/24 Range/Units 06:52 WBC 6.00 (4.8-10.8) K/ul Hgb 11.4 L (14.0-18.0) g/dl Hct 35.2 L (42.0-52.0) % Plt Count 308 (130-400) K/uL BMP 11/17/24 06:52 Sodium 137 Potassium 4.2 Chloride 99 Carbon Dioxide 31 BUN 14 Creatinine 1.21 Glucose 225 H Calcium 9.2 Medications Administered Current Inpatient Medications Aripiprazole (Aripiprazole 10 Mg Tab) 20 mg PO DAILY ESTEFANI Stop: 12/15/24 08:59 Last Admin: 11/17/24 09:37 Dose: 20 mg Atorvastatin Calcium (Atorvastatin 40 Mg Tab) 80 mg PO HS ESTEFANI Stop: 12/15/24 20:59 Last Admin: 11/16/24 21:33 Dose: 80 mg Ciprofloxacin (Ciprofloxacin 250 Mg Tab) 500 mg PO Q12H ESTEFANI; Protocol Stop: 11/27/24 09:59 Last Admin: 11/17/24 10:45 Dose: 500 mg Dextrose (Dextrose 50% 50 Ml Syringe) 25 - 50 ml IV UD PRN; Protocol PRN Reason: Hypoglycemia Protocol Stop: 12/15/24 03:35 Docusate Sodium (Docusate Sodium 100 Mg Cap) 100 mg PO BID PRN PRN Reason: Constipation Stop: 12/15/24 03:35 Gabapentin (Gabapentin 600 Mg Tab) 600 mg PO HS ESTEFANI Stop: 12/15/24 20:59 Last Admin: 11/16/24 21:33 Dose: 600 mg Gabapentin (Gabapentin 300 Mg Cap) 300 mg PO BID@0900,1400 ESTEF[facility] Stop: 12/15/24 08:59 Last Admin: 11/17/24 13:12 Dose: 300 mg Glucagon (Glucagon For Inj 1 Mg Vial) 1 mg SQ UD PRN; Protocol PRN Reason: Hypoglycemia Protocol Stop: 12/15/24 03:35 Glucose (Glucose 40% Gel 15 Gm Tube) 15 - 30 gm PO UD PRN; Protocol PRN Reason: Hypoglycemia Protocol Stop: 12/15/24 03:35 Glucose (Glucose 10 Tab/Tube) 4 - 8 tab PO UD PRN; Protocol PRN Reason: Hypoglycemia Protocol Stop: 12/15/24 03:35 Guaifenesin/Dextromethorphan (Guaifenesin/Dextrom Syrup 200mg/20mg 10ml Udc) 10 ml PO Q6H PRN PRN Reason: Cough Stop: 12/17/24 09:07 Last Admin: 11/17/24 09:30 Dose: 10 ml Heparin Sodium (Porcine) (Heparin Sod 5,000 Unit/0.5 Ml Vial) 7,500 units SQ Q12 ESTEFANI Stop: 12/15/24 08:59 Last Admin: 11/17/24 09:32 Dose: 7,500 units Acetaminophen (Ofirmev) 1,000 mg in 100 mls @ 400 mls/hr IV Q8H PRN PRN Reason: Pain or Fever Stop: 11/18/24 04:10 Last Infusion: 11/15/24 17:28 Dose: Infused Insulin Aspart (Insulin Aspart Per Unit Charge) 0 units SC TID@1130,1630,2100 [facility] Stop: 12/17/24 16:29 Insulin Aspart (Insulin Aspart Per Unit Charge) 0 units SC QDB [facility] Stop: 12/18/24 07:29 Insulin Glargine (Lantus Per Unit Charge) 0 units SC HS [facility]; Protocol Stop: 12/16/24 20:59 Last Admin: 11/16/24 21:35 Dose: 10 units Insulin Glargine (Lantus Per Unit Charge) 30 units SC DAILY [facility] Stop: 12/17/24 08:59 Last Admin: 11/17/24 09:27 Dose: 30 units Lorazepam (Lorazepam 1 Mg Tab) 1 mg PO HS [facility] Stop: 12/15/24 20:59 Last Admin: 11/16/24 21:33 Dose: 1 mg Miscellaneous (Carbohydrates For Hypoglycemia ) 15 - 30 gm PO UD PRN PRN Reason: Hypoglycemia Protocol Stop: 12/15/24 03:35 Miscellaneous (Methylphenidate 20 Mg Ext Rel - Order Awaiting Action) 1 each N/A QS [facility] Stop: 12/15/24 07:59 Last Admin: 11/17/24 09:19 Dose: Not Given Miscellaneous Information (Pharmacy Glycemic Mgmt Consult) 1 each N/A UD PRN; Protocol PRN Reason: Consult Stop: 12/15/24 15:02 Multivitamins/Minerals (Cerovite Adv Formula Tab) 1 tab PO DAILY ESTEFANI Stop: 12/15/24 08:59 Last Admin: 11/17/24 09:38 Dose: 1 tab Nitroglycerin (Nitroglycerin Sl 0.4 Mg/Tab Tab) 0.4 mg SL Q5M PRN PRN Reason: Chest Pain Stop: 12/15/24 03:35 Phenazopyridine HCl (Phenazopyridine Hcl 100 Mg Tab) 100 mg PO TID PRN PRN Reason: Dysuria Stop: 11/19/24 04:10 Last Admin: 11/17/24 06:29 Dose: 100 mg Trazodone HCl (Trazodone Hcl 50 Mg Tab) 150 mg PO HS [facility] Stop: 12/15/24 20:59 Last Admin: 11/16/24 21:33 Dose: 150 mg
[2024-11-17 15:29] VITALS: BP 146/79; PULSE 77; TEMP 98.2; O2SAT 91
--- NOTE | 2024-11-18 08:33 | Discharge Summary ---
Date of Service November 18, 2024 Admission HPI Per Admitting Provider 59-year-old male with past medical history significant for type 2 diabetes, diabetic polyneuropathy, dyslipidemia, obstructive sleep apnea, allergic rhinitis, right heart enlargement, hypertension, history of CAD, morbid obesity, diverticulosis of large intestine, essential tremor, history of lymphadenopathy, mood disorder, schizophrenia, ADHD, bipolar disorder, history of kidney stones presents with left renal colic. Patient says since last 4 days having left flank pain associated with fever and chills. Has been not getting better and he came to the ER. Currently status post emergent cystoscopy and stent plac ement. Resting comfortably. Hemodynamics okay currently. Denies any headache. No runny nose or sore throat. Last night had dry cough. No chest pain or shortness of breath. Currently no nausea. No abdominal pain. No burning micturition. Normal bowel movements. Past medical history. As mentioned above Past surgical history. Liver biopsy cervical left side. Colonoscopy. Dental surgery. Lumbar hemilaminectomy. Social history. No smoking. Alcohol rarely. No drug use. Family history. Brother had skin cancer. Mother had cancer. Sister has diabetes. Admission Exam Per Admitting Provider Physical Exam: General- Not in distress Head- atraumatic Eyes- PERRL. ENT- oropharynx clear Neck- supple, no JVD. Lungs- clear to auscultation no wheezing or crackles. Heart- regular rhythm; no murmur, no gallop. Abdomen- normal bowel sounds, soft, nontender, no distension. Extremities- Mild pretibial edema, no erythema seen Neuro- alert, oriented PERRL, no facial palsy; no dysarthria; moves extremities Principal Diagnosis Sepsis secondary to E. coli bacteremia, left ureteric stone status post stent placement Discharge Exam Lying in bed without any acute distress Constitutional well developed, well nourished, + ill appearing and + morbidly obese Eyes PERRL, conjunctivae normal, anicteric sclerae ENMT external ear and nose normal, oropharynx normal Neck trachea midline, no thyromegaly Respiratory no respiratory distress Auscultation: lungs clear to auscultation bilaterally and + diminished lung sounds Cardiovascular Rate/Rhythm: regular rate and regular rhythm; not tachycardic Heart Sounds: normal S1 and normal S2; no murmur Extremities: + edema ( trace edema bilaterally) Gastrointestinal (Abdomen) Inspection/Auscultation: + abdomen distended and normal bowel sounds Percussion/Palpation: abdomen soft; abdomen nontender ( renal angles are not tender) Neurologic normal touch/pain/proprioception and moves all extremities; no focal motor deficits Psychiatric A+Ox3, euthymic affect Lymphatic no cervical or axillary lymphadenopathy Discharge Data Allergies Allergy/AdvReac Type Severity Reaction Status Date / Time Iodinated Contrast Media Allergy Intermediate itching Verified 11/15/24 00:44 Consultations 11/15/24 00:28 ED Decision to Admit Stat 11/15/24 13:18 Consult Infectious Diseases Routine Procedures Performed Operation Date: 11/15/24 01:30 Actual Procedures p Cystoscopy with urethral dilation, difficult catheter placement, aspiration of urine, Left retrograde pyelogram, left ureteral stent placement(Left) - Rogelio Bear, Ordered Studies 11/14/24 22:26 CT abd pelvis wo con Stat 11/15/24 01:23 FL retrograde includes kub Stat Hospital Course (1) Sepsis: 59-year-old male with past medical history significant for type 2 diabetes, diabetic polyneuropathy, dyslipidemia, obstructive sleep apnea, allergic rhinitis, right heart enlargement, hypertension, history of CAD, morbid obesity, diverticulosis of large intestine, essential tremor, history of lymphadenopathy, mood disorder, schizophrenia, ADHD, bipolar disorder, history of kidney stones presents with left renal colic. Patient says since last 4 days having left flank pain associated with fever and chills. Has been not getting better and he came to the ER. Currently status post emergent cystoscopy and stent placement. Resting comfortably. Hemodynamics okay currently. Denies any headache. No runny nose or sore throat. Last night had dry cough. No chest pain or shortness of breath. Currently no nausea. No abdominal pain. No burning micturition. Normal bowel movements. Sepsis Renal colic left side with fever and chills for 4 days- noted to have increased temperature, tachycardia and tachypnea on presentation CT scan showing 8 mm calculus in the distal left ureter 2 cm from the UV juncti on with moderate left-sided hydro nephrosis and hydroureter Status post cystoscopy and stent placement 1 11/15/2024 On empiric Zosyn and Vanco Awaiting urine and blood cultures results Appreciate urology input and recommendation He has been feeling much better following the procedure Will continue current management now Blood and urine cultures came back positive for E. coli which is pansensitive Antibiotic changed to ceftriaxone 2 g IV every 12 hourly and vancomycin has been discontinued Has not had any ID evaluation yet Likely to have PT OT evaluation prior to discharge and plan to send him home on oral Levaquin if there is no ID input within the next day or 2 Patient refused to have PT and OT evaluation as he is doing at his baseline He wants to go home today He was given oral Cipro to continue for the next 10 days to complete the course of antibiotic He will have the catheter in situ and will be seen by urologist as an outpatient Diabetes Hold home p.o. medications Sliding scale covers for now Closely monitor Follow HbA1c levels-elevated at 8.6 Obstructive sleep apnea CPAP nightly Right heart enlargement Monitor for volume overload No signs and or symptoms of volume overload Morbid obesity Counseling GABRIEL Baseline creatinine 1 Presented creatinine 1.8 Avoid nephrotoxic agents Will follow repeat labs-creatinine shows improvement in the level of 1.43 Advised to drink more fluid Hypertension Holding lisinopril for GABRIEL Will monitor Hyperlipidemia On statin History of CAD On statin History of mood disorder Schizophrenia Bipolar disorder ADHD Continue home medications DVT prophylaxis Heparin subcu Disposition Med/telemetry Full code. Will get PT and OT evaluation prior to discharge Did not want to stay to do the physical therapy Total Time Total Time Spent Total Time Spent (In Minutes): 35 Minutes Discharge Plan Discharge Items Patient Disposition: Home - Self-Care Reason For Visit: SEPSIS,KIDNEY STONE Discharge Diagnosis: Sepsis secondary to E. coli bacteremia, left ureteric stone status post stent placement Condition on Discharge: Fair Activity: Resume your previous activity Non-emergency contact: Primary Care Provider Call non-emergency contact if: you have any medication questions and your symptoms worsen Follow-up/Referrals: Rogelio Bear DO [Physician] - (The office will call you with an appointment.) Mario Alberto Archuleta MD [Primary Care Provider] - 11/22/24 11:20 am (Date & Time 11/22/2024 11:20 AM Provider: Mario Alberto Archuleta MD [facility] [place]) Diet: Carb Consistent or DM2 and Heart Healthy Addtl Attending Provider Instructions: Please take precautions to avoid fall Finish the course of antibiotic Try to drink more fluid Maintain your Galvan catheter as advised until you are seen by the urologist Try not to use any trazodone and atorvastatin as long as you are on Cipro to avoid drug interaction Pending Studies at Discharge: No Stand-Alone Forms: [facility], Smoking Cessation Medications and DC Order Prescriptions: New ciprofloxacin HCl 250 mg Tablet 500 mg PO Q12H Qty: 20 0RF phenazopyridine [Pyridium] 100 mg Tablet 100 mg PO TID PRN (Reason: dysuria) Qty: 10 0RF Continued atorvastatin 80 mg Tablet 80 mg PO HS metformin 1,000 mg Tablet 1,000 mg PO BID methylphenidate HCl 20 mg Tablet Extended Release 20 mg PO QAM gabapentin 300 mg Capsule 300 mg PO BID gabapentin 300 mg Capsule 600 mg PO HS lorazepam 1 mg Tablet 1 mg PO HS trazodone 150 mg tablet 150 mg PO HS Jardiance 25 mg tablet 25 mg PO QAM aripiprazole 20 mg tablet 20 mg PO DAILY docusate sodium [Col-Rite] 100 mg capsule 100 mg PO BID PRN (Reason: Constipation) glipizide 10 mg tablet extended release 24hr 10 mg PO QAM Ozempic 2 mg/dose (8 mg/3 mL) pen injector 2 mg SUBCUT WK lisinopril 10 mg tablet 10 mg PO DAILY Centrum Silver Men [id number] mcg Tablet 1 tab PO DAILY Discharge Orders: Discharge Order (Routine); Ordered 11/17/24 Ordered By: Jessica Arthur/Other Patient Handouts: Kidney Stones: Are You at Risk?, Blood Sugar Check Steps Admission Data Admit Date/Time: 11/15/24 03:00 Attending Provider: Jessica Parada Admit Provider: Godfrey Musa Primary Care Provider: Mario Alberto Archuleta Other Providers: Godfrey Musa; Karthik Abbott; Arron Landon; Yair Solis I.; Daryl Hua II; Navya Cordova; Mario Alberto Cope; Humberto Kaplan; Albert Tran; Belinda aGrcia; Megan Oliva Other Interventions: Discharge Summary Assessment (RN) Last Done: 11/17/24 15:51
--- NOTE | 2024-11-19 07:31 | Electrocardiogram Report ---
Test Reason : Blood Pressure : */* mmHG Vent. Rate : 73 BPM Atrial Rate : 73 BPM P-R Int : 194 ms QRS Dur : 90 ms QT Int : 372 ms P-R-T Axes : 34 25 31 degrees QTcB Int : 409 ms Normal sinus rhythm Low voltage QRS Borderline ECG When compared with ECG of 14-Nov-2024 22:46, No significant change was found Confirmed by Nai Santoro ([place]) on 11/19/2024 7:31:08 AM Referred By: REFERRED SELF Confirmed By: Nai Santoro
== END 2024-11-17 17:27 | disposition home or self-care (01) ==
LOC: ED 21:56 → 2N 11-15